=== PATIENT | female | born 1940 | race Caucasian/White ===

== ENCOUNTER 2020-10-10 16:54 | Inpatient (IN) | payer MEDICARE ==
[~2020-10-10 16:54] MED LIST: Iopamidol-370 76% 500 ML 1 ML ONE
--- NOTE | 2020-10-10 17:37 | RAD ---
Chest AP view INDICATION: Shortness of breath with wheezing COMPARISON: August 03, 2014 FINDINGS: Lungs: Chronic lung changes appears stable. There are new patchy areas of groundglass airspace opaci ty within the right lower lobe. Cardiac silhouette: Mild cardiomegaly and small hiatal hernia is stable. Vascular consultations of t he thoracic aorta are similar. Pulmonary vasculature: Normal Pleural spaces: No pleural effusion or pneumothorax is demonstrated. Upper abdomen: No abnormality seen. Osseous structures: No acute osseous abnormality. Additional findings: None. IMPRESSION: Patchy peripheral groundglass airspace opacities of the right lower lobe may be reflective of an atyp ical infectious process and early pneumonitis. Recommend correlation with the clinical examination. Covid pneumonia could have a similar appearance. Recommend consideration for Covid testing. Stable CO PD change and mild cardiomegaly.
[2020-10-10] MEDS ORDERED: PROVENTIL INHALER 6.7 G (200 INHALATIONS) ONE (17:57)
[2020-10-10] MEDS ORDERED: Magnesium 2 GM/50 ML BAG (IN WATER) ONE (17:57)
[2020-10-10] MEDS ORDERED: predniSONE 20 MG TAB ONE (17:57)
[2020-10-10] MEDS ORDERED: Nitroglycerin 2% Ointment 1 INCH/1 GM Packet ONE (17:57)
[2020-10-10 18:24] LABS: #Eosinphils 0.1 thou/uL (0.0-0.7); #Lymphocytes 0.4 thou/uL (1.20-3.40); #Monocytes 0.2 thou/uL (0.11-0.59); #Neutrophils 3.3 thou/uL (1.40-6.50); %Eosinophils 3.4 % (0.0-10.0); %Lymphocytes 8.9 % (21.0-51.0); %Neutrophils 82.7 % (42.0-75.0); Hemoglobin 10.7 g/dL (12.0-16.0); Mean Corpuscular Hemoglobin 31.4 pg (27.0-31.0); Mean Corpuscular Volume 98.3 fL (78.0-98.0); Mean Platelet Volume 8.3 fL (7.4-10.4); Platelet Count 137 thou/uL (130-400); RBC Distribution Width 12.9 % (11.5-14.5); Red Blood Cell (RBC) Count 3.41 mill/uL (4.20-5.40)
[2020-10-10 18:41] LABS: ALT (SGPT) 13 U/L (8-55); AST (SGOT) 21 U/L (5-34); Albumin 3.9 g/dL (3.4-4.8); Alkaline Phosphatase 44 U/L (40-110); Anion Gap 14 mmol/L (10-20); BUN (Urea Nitrogen) 21 mg/dL (9.8-20.1); Bilirubin, Total 0.6 mg/dL (0.2-1.2); Calc. Creatinine Clearance 0 mL/min (70-130); Carbon Dioxide 26 mmol/L (23-31); Chloride 103 mmol/L (98-107); Globulin 2.9 g/dL (2.4-3.5); Glucose 98 mg/dL (83-110); Magnesium 2.1 mg/dL (1.6-2.6); Potassium 4.1 mmol/L (3.5-5.1); Protein, Total 6.8 g/dL (5.8-8.1); Sodium 139 mmol/L (136-145)
[2020-10-10 19:04] LABS: CKMB 3.3 ng/mL (0-6.6)
[2020-10-10] MEDS ORDERED: Albuterol 200 PUFF (6.7GM INHALER) ONE (19:26)
[2020-10-10] MEDS ORDERED: Acetaminophen 500 MG TAB ONE (19:26)
[2020-10-10 19:50] LABS: SARS-CoV-2 NAA Rapid Test Not Detected (NotDetected)
[2020-10-10] MEDS ORDERED: Sodium Chloride 0.9% 100 ML ONE (20:20)
[2020-10-10] MEDS ORDERED: Azithromycin 250 MG TAB ONE (20:20)
[2020-10-10] MEDS ORDERED: cefTRIAXone\\ROCEPHIN 2 GM VIAL ONE (20:20)
[2020-10-10] MEDS ORDERED: Furosemide 20 MG/2 ML VIAL ONE (20:20)
--- NOTE | 2020-10-10 21:48 | CT ---
CTA Angio Chest W WO Con 10/10/2020 9:07 PM Indication: 79-year-old female with dyspnea and elevated d-dimer Technique: Multiple CTA images were obtained of the thorax with IV contrast. 3-D rendering: MIP shaw nstructed images were created and reviewed. Comparison: CT the thorax with contrast dated August 05, 2014 Findings: Pulmonary arteries: No central or segmental pulmonary embolus is evident. Heart and Aorta: There is severe coronary artery and thoracic aortic caliber patient. There is ectas ia of the ascending aorta measuring 3.9 cm. There is aneurysmal dilatation of the aortic arch to 3.8 cm. There is aneurysmal dilatation of the descending thoracic aorta 3.2 cm. There is a bilobed palacio prarenal abdominal aortic aneurysm measuring 3.9 and 3.2 cm. There are severe vascular calcifications of the visualized aorta. Mediastinum:There is an enlarged AP window lymph node measuring 1.5 cm. Lungs:There is a spiculated mass in the left upper lobe with surrounding cicatricial scarring measuri ng 5.1 x 3.7 x 4.2 cm. The spiculated margins of the mass contacts the aortic arch and left anterolateral pleural surface. Small focus of cavitation is seen within the lower aspect the mass. Th ere is severe emphysema. There are reticular nodular opacities within the posterior lateral right lower lobe on image 73 of series 3. There is a 6 mm pulmonary nodule in the right lower lobe on image 73 of series 3. Pleural space: There is a small left pleural effusion. There are pleural parenchymal scarring presen t within both upper hemithoraces. Upper Abdomen: This is not well interrogated due to the phase of contrast enhancement. Bilateral prince al cysts are poorly characterized on the current study. The visualized adrenal glands appear within normal limits. Osseous Structures: There are chronic wedge compression abnormalities involving T6-L1. There is wors ening moderate to severe loss of height involving the T6 vertebral body. There is also further loss of height involving the T11 compression abnormality. There is diffuse osteopenia. Soft tissues:No abnormality. Other findings:None. Impression: 1. No central or segmental pulmonary embolus. 2. Spiculated left upper lobe lung mass highly suspicious for lung malignancy. There is reticular nod ularity in the right lower lobe in addition to an additional 6 mm noncalcified pulmonary nodule. Metastatic disease is not excluded. Recommend further evaluation with PET/CT for additional character ization. 3. Enlarged AP window lymph node may reflect malignant lymphadenopathy. PET/CT would be helpful for f urther characterization. 4. Small left pleural effusion 5. Emphysema. 6. Chronic wedge compression abnormalities of T6-L1. Worsening loss of height involving the T6 and T1 1 compression abnormalities. 7. 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 Severe vascular calcifications.
--- NOTE | 2020-10-10 23:43 | HP ---
REASON FOR ADMISSION: Shortness of breath. HISTORY OF PRESENT ILLNESS: This is a 79-year-old female patient, who has been short of breath for the past three days. Shortness of breath is worse with activity. She denies any chest pain. Denies productive cough. Denies fevers. Denies chills. No recent travel and no sick contacts. She has been using her inhalers without any improvement. That is why, she came to the emergency room. Currently after receiving steroids and nebulizer treatments, she feels much better. PAST MEDICAL HISTORY: 1. High blood pressure. 2. COPD. 3. History of stroke with right lower extremity weakness as a sequela. ALLERGIES: TO PENICILLIN. FAMILY HISTORY: No known to have any premature coronary artery disease. REVIEW OF SYSTEMS: All systems reviewed, except the above-mentioned shortness of breath found to be negative. PHYSICAL EXAMINATION: GENERAL: Awake, alert, oriented, does not appear in distress. VITAL SIGNS: Her blood pressure is 138/71, pulse of 92, temperature is 98.3, saturating 99% on 2 L nasal cannula. HEENT: Head is nontraumatic, normocephalic. Pupils equal, reactive. Extraocular movements are intact. Nonicteric sclerae. Well-injected conjunctivae. Oral mucosa normal. Nasal mucosa normal. NECK: Supple. No adenopathy. No murmur. Thyroid is not palpable. Trachea is midline. No supraclavicular adenopathy. HEART: S1, S2, regular. No murmur. No gallops. No friction rubs. No displacement of PMI. LUNGS: Clear to auscultation. Decreased air entry bilaterally. ABDOMEN: Bowel sounds are positive. Nontender abdomen. EXTREMITIES: She has 1+ pitting edema to bilateral lower extremities with evidence of chronic venous stasis. NEURO: Cranial nerves II through XII within normal limits. Normal motor function. Normal sensory function, reflexes. LABORATORY DATA: Blood work shows a WBC of 4, hemoglobin of 10.7, platelets of 137, sodium of 139, potassium 4.1, bicarb of 26, creatinine of 0.86. Troponin 0.05. First troponin 0.061. COVID-[address] of the chest shows no PE. Spiculated left upper lobe lung mass, highly suspicious for lung malignancy. There is reticular nodularity in the right lower lobe in addition to an additional 6 mm noncalcified pulmonary nodule. Metastatic disease is not excluded. Recommended further evaluation with PET/CT for additional characterization. Enlarged AP window lymph node, may reflect malignant lymphadenopathy. PET/CT would be helpful for further characterization. Small left pleural effusion. Emphysema. Chronic wedge compression abnormality of T6, L1, worsening loss of height involving T6, T11 compression abnormalities. 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 Severe vascular calcification. ASSESSMENT AND PLAN: This is a 79-year-old female patient, who is presenting with shortness of breath, most likely secondary to chronic obstructive pulmonary disease exacerbation. She does have indeterminate troponin. She does have bilateral lower extremity edema. 1. Pulmonary: The patient will be on neb treatments, IV Solu-Medrol, and IV antibiotics. We will have Oncology to consult on her to further investigate the findings on the CAT scan of the chest. 2. For DVT prophylaxis, she will be on Lovenox. 3. Cardiac: The patient has high blood pressure, verify her home medications, she will be on high IV hydralazine as needed basis. 4. For her abnormal troponin, most likely is demand ischemia, we will continue rechecking her troponin since she will be on telemetry. I will do an echocardiogram. 5. In regard of the thoracic aorta and abdominal aortic dilatation, this needs to be followed up as an outpatient. 6. In regard of her code, I did discuss with her code status, and she was adamant that she wants to be a do not resuscitate, do not intubate. Job ID: [id number]
[2020-10-11 00:27] LABS: Troponin I 0.049 ng/mL (< 0.028)
[2020-10-11] MEDS ORDERED: Lorazepam 2 MG/ML VIAL ONE (04:19)
[2020-10-11] MEDS ORDERED: Lorazepam 2 MG/ML VIAL SLOW IVP SCH (04:20)
[2020-10-11] MEDS ORDERED: hydrALAZINE 20 MG/ML VIAL ONE (05:08)
[2020-10-11] MEDS: hydrALAZINE 20 MG/ML VIAL SLOW IVP PRN (05:13)
[2020-10-11] MEDS ORDERED: Furosemide 40 MG/4 ML VIAL ONE (05:15)
[2020-10-11] MEDS ORDERED: Furosemide 40 MG/4 ML VIAL SLOW IVP SCH (05:15)
[2020-10-11 07:04] LABS: #Lymphocytes 0.2 thou/uL (1.20-3.40); #Monocytes 0.1 thou/uL (0.11-0.59); #Neutrophils 4.8 thou/uL (1.40-6.50); %Basophils 0.1 % (0.0-1.0); %Lymphocytes 4.7 % (21.0-51.0); %Monocytes 2.4 % (0.0-10.0); %Neutrophils 92.8 % (42.0-75.0); Hemoglobin 12.4 g/dL (12.0-16.0); Mean Corpuscular HGB CONC 33.3 g/dL (32.0-36.0); Mean Corpuscular Hemoglobin 32.3 pg (27.0-31.0); Mean Platelet Volume 8.2 fL (7.4-10.4); Platelet Count 151 thou/uL (130-400); RBC Distribution Width 13.1 % (11.5-14.5); Red Blood Cell (RBC) Count 3.84 mill/uL (4.20-5.40); White Blood Cell (WBC) Count 5.1 thou/uL (4.8-10.8)
[2020-10-11 07:34] LABS: Anion Gap 17 mmol/L (10-20); BUN (Urea Nitrogen) 27 mg/dL (9.8-20.1); Calc. Creatinine Clearance 0 mL/min (70-130); Calcium 8.8 mg/dL (7.8-10.44); Carbon Dioxide 21 mmol/L (23-31); Chloride 101 mmol/L (98-107); Glucose 222 mg/dL (83-110); Potassium 4.6 mmol/L (3.5-5.1); Sodium 134 mmol/L (136-145)
--- NOTE | 2020-10-11 07:59 | RAD ---
CHEST 1 VIEW: Date: 10/11/2020 COMPARISON: 10/10/2020. HISTORY: Shortness of breath and wheezing. FINDINGS: There is atherosclerosis and cardiomegaly. Pulmonary vessels and hilum are normal. Costophrenic angle s are clear. There are patchy interstitial opacities throughout the lung parenchyma with a more focal opacity in the left upper lobe. There is a corresponding spiculated mass noted on the CT angiogram o f the chest performed on 10/10/2020. IMPRESSION: 1. Atherosclerosis. 2. Cardiomegaly without evidence of congestive heart failure. 3. Spiculated mass in the left upper lobe. POS: PPP
[2020-10-11] MEDS ORDERED: methylPREDNISolone Sod Succ 40 MG VIAL IVP SCH (09:00)
[2020-10-11] MEDS ORDERED: methylPREDNISolone Sod Succ 40 MG VIAL ONE (09:37)
[2020-10-11] MEDS ORDERED: Enoxaparin Sodium 40 MG/0.4 ML SYRINGE ONE (09:37)
[2020-10-11] MEDS: Enoxaparin Sodium 40 MG/0.4 ML SYRINGE SC SCH (09:46)
--- NOTE | 2020-10-11 13:22 | PDOC.BPN ---
- Brief Progress Note [id number] Progress note dictated
--- NOTE | 2020-10-11 14:00 | PRG ---
DATE OF SERVICE: 10/11/2020 SUBJECTIVE: The patient was admitted last night with shortness of breath for the last 3 days. She does have history of COPD, hypertension, and CVA. Workup, the patient was in respiratory failure, placed on oxygen and is off all bronchodilators, IV antibiotics, and IV Solu-Medrol. Also, the patient was found to have a spiculated lung mass, for which Oncology is being consulted. Also, she was found to have a cirrhotic and abdominal aortic dilatation that needs to be followed as an outpatient. Today, she is feeling a little better, although she seems to be short of breath. OBJECTIVE: VITAL SIGNS: Blood pressure is 170/90, pulse is 102, respiratory rate is 20, and oxygen saturation is 98% on 2 L/minute nasal cannula. HEAD AND NECK: Normocephalic, atraumatic. CHEST: Bilateral expiratory wheeze. HEART: S1 and S2. Regular. ABDOMEN: Soft, nontender. NEURO: Awake, alert. PSYCH: Unable to assess. EXTREMITIES: No clubbing. No cyanosis. LABORATORY DATA: Sodium is 134, potassium 4.6, BUN is 27, creatinine 1.1, and glucose is 222. COVID test negative. ASSESSMENT: 1. Acute respiratory failure, the patient was weaned off BiPAP, currently on nasal cannula. 2. Chronic obstructive pulmonary disease with exacerbation. 3. Hypertension. 4. Lung mass. 5. Aneurysmal dilatation of thoracic and abdominal aorta. PLAN: 1. Continue with oxygen to keep saturation more than 92%. 2. Continue with IV steroids. 3. Bronchodilators. 4. IV antibiotics. 5. Oncology being consulted for evaluation and further recommendations regarding spiculated left upper lobe lung mass, which is suspicious of malignancy. 6. DVT prophylaxis as appropriate. 7. Case discussed with the patient's daughter. Job ID: [id number]
[2020-10-11] MEDS: methylPREDNISolone Sod Succ 40 MG VIAL IVP SCH ×2 (17:17→23:18)
--- NOTE | 2020-10-11 17:52 | CON ---
DATE OF CONSULTATION: HISTORY OF PRESENT ILLNESS: Mehnaz Ji is a 79-year-old female, who was a lifelong smoker up to a pack a day for at least 50+ years. She says quit smoking 7 years ago. She has not seen a doctor for 2 years, now presents to the hospital with increasing shortness of breath for several days duration without any associated chest pain, chills, sweats, hemoptysis. She has been in the ER now for almost 24 hours. I spoke to the patient as well as a sister who says she uses a walker to get around, but can barely walk with a walker, maybe about 30 feet. Denies any weight loss. She has noticed lower extremity swelling. PAST MEDICAL HISTORY: Coronary artery disease, status post stent, COPD, previous TIA, and hypertension. PAST SURGICAL HISTORY: Stent in the leg. TOBACCO: As noted. ALCOHOL: Unknown. REVIEW OF SYSTEMS: Otherwise, unremarkable. HOME MEDICATIONS: Include some inhaler. ALLERGIES: PENICILLIN. REVIEW OF SYSTEMS: 10-point negative. PHYSICAL EXAMINATION: EXTREMITIES: She has trace edema. VITAL SIGNS: Temperature 97, respirations 18, sats are 90% on 2 L, blood pressure 170/100. She was on BiPAP for a period of time. GENERAL: She is awake, alert, responsive. CHEST: Decreased breath sounds minimal wheezing. CARDIAC: Normal S1, S2. No gallops. ABDOMEN: Soft. LABORATORY DATA: Creatinine 1.3, glucose 222, sodium 139. Troponin mildly elevated. Coronavirus test was negative. IMAGING STUDIES: X-ray shows a left upper lung mass, marked hyperinflation. CAT scan confirms the left upper lung mass measuring 5 x 3 x 4 cm along with aneurysmal dilatation of the aorta descending. IMPRESSION: Chronic obstructive pulmonary disease, left upper lung mass, bronchogenic carcinoma, hypertension, peripheral vascular disease. PLAN: Steroids, neb treatments, antibiotics will be initiated. When she is approved, we will discuss ongoing plan whether she wants a tissue diagnosis etc. Consultation note, 70 minutes, 50% direct patient care. Job ID: [id number]
[2020-10-11] MEDS: Mometasone 200 MCG/Formoterol 5 MCG 120 PUFF INHALER INH SCH (19:20)
[2020-10-11] MEDS ORDERED: cefTRIAXone\\ROCEPHIN 1 GM in Sodium Chloride 0.9% 100 ML IVPB SCH (20:00)
[2020-10-11] MEDS ORDERED: Azithromycin 200 MG/5 ML Oral Suspension PO SCH (20:00)
[2020-10-11] MEDS ORDERED: Acetaminophen 325 MG TAB PO SCH (22:00)
--- NOTE | 2020-10-11 22:13 | CON ---
DATE OF CONSULTATION: REASON FOR CONSULTATION: Lung mass. HISTORY OF PRESENT ILLNESS: Ms. Ji is a 79-year-old female who has a history of COPD and hypertension, who presented to the emergency room yesterday with worsening shortness of breath over the last three days. She actually admits that she has been progressively short of breath over the last 6 months. She was a patient of Dr. Rizo and has not seen a physician in over three years. She stopped taking her blood pressure medicine and substituted beet juice for this. She was brought to the emergency room by her family. Once here, she underwent a CT angio of the chest and thorax. It was negative for pulmonary emboli; however, there was a spiculated mass in the left upper lobe measuring 5.1 x 3.7 x 4.2 cm. The spiculated margins of the mass contact the aortic arch and left anterolateral pleural surface. There was a 6 mm pulmonary nodule in the right lower lobe and a small pleural effusion. There is a chronic wedge compression of T6 through L1 and aneurysmal dilation of the thoracic and abdominal aorta. The patient was admitted for COPD exacerbation. She was given Lasix with improvement in her breathing. We were asked to see her regarding her spiculated mass. PAST MEDICAL HISTORY: 1. Hypertension. 2. Degenerative joint disease. 3. History of TIA. 4. COPD. PAST SURGICAL HISTORY: None. ALLERGIES: TO PENICILLIN. HOME MEDICATIONS: None. FAMILY HISTORY: She has a brother with lung cancer. Another brother with throat cancer. A brother with bladder cancer and a son with rectal cancer. SOCIAL HISTORY: Lives alone. A 50-pack plus year history of smoking, quit 7 years ago. No alcohol or illicit drug use. REVIEW OF SYSTEMS: A 12-point review of systems is negative except for noted in HPI. PHYSICAL EXAMINATION: VITAL SIGNS: Temperature 98.3, pulse is 120, respiratory rate 28, blood pressure is 174/100. She is 96% on 2 L. GENERAL: This is a thin female, in mild respiratory distress. HEENT: Normocephalic, atraumatic. Pupils are equal and reactive to light. NECK: Supple. CV: Regular rate and rhythm. She is tachycardic. LUNGS: Diminished throughout. She has pursed lip breathing. ABDOMEN: Soft. Bowel sounds are positive. EXTREMITIES: She has 1+ bilateral lower extremity edema. SKIN: No rash. HEMATOLOGIC: She has scattered bruising on her arms. NEUROLOGIC: Nonfocal. PERTINENT LABORATORY DATA AND X-RAYS: WBCs 5.1, hemoglobin 12.4, hematocrit 37.2, platelet count is 151,000, 92% neutrophils, 5% lymphocytes. Sodium 134, potassium 4.6, chloride 101, CO2 is 21, BUN is 17, creatinine 1.13, calcium 8.8. Bilirubin 0.6, AST is 21, ALT is 13, alkaline phosphatase is 44. Serum total protein is 6.8, albumin 3.9, globulin 2.9. Troponin is 0.049. BNP is 355.5. Influenza and SARS negative. Radiology per HPI. ASSESSMENT: 1. Left upper lobe spiculated mass. 2. Chronic obstructive pulmonary disease exacerbation. DISCUSSION: The patient has been treated with diuretics and O2 and has improved. She remains tachycardic. She does not see a supervising editor news reel, but was diagnosed with COPD by Dr. Rizo. In review of her medical records, she had a CAT scan performed in 2013, which showed a 1 cm nodular density in the left upper lobe on CT angio. There has been no further workup for this, but obviously has grown over the last several years. This is unlikely a small cell lung cancer. However, she does need a biopsy. Given her dyspnea, I have asked Pulmonology to see her and further recommendations regarding biopsy. She does wish to pursue treatment should this be a lung cancer. We will follow along with the hospital course. Thank you for the consult. Job ID: [id number] MTDD
[2020-10-12] MEDS ORDERED: Nitroglycerin 2% Ointment 1 INCH/1 GM Packet ONE ×2 (00:55→00:57)
--- NOTE | 2020-10-12 01:24 | PDOC.EVN ---
Event Note - Event Note Event Note: Nursiing called. Patient awoke, BP184/120, HR 130s, RR 28, spo2 91% 2L NC. Patient endorses feeling hot and SOB. Removed her gown. Denies chest pain or heart palps. A: sitting tripod side of bed, severe kyphosis. A&Ox4 mild resp distress, speaks in complete sentences Tachycardic, no rubs or gallops,no diaphoresis Diminished throughout, poor inspiratory effort. Tele monitor appears ST. Does not appear to be FVO. Patient on solumedrol, just receive Neb per nursing Has cancer, CTA at admission no PE, patient on LMWH prophylaxis Ordered nitropaste, asked nursing to get fan in room. Patient unable to lay flat, will not tolerate CTA. STAT CXR. Will monitor response. Discusse with Dr. Bailey.
[2020-10-12] MEDS: cloNIDine 0.1 MG TAB PO PRN ×2 (01:36→08:51)
[2020-10-12] MEDS ORDERED: Lorazepam 2 MG/ML VIAL SLOW IVP SCH (03:00)
[2020-10-12 05:04] LABS: Anion Gap 14 mmol/L (10-20); BUN (Urea Nitrogen) 28 mg/dL (9.8-20.1); Calc. Creatinine Clearance 34 mL/min (70-130); Calcium 8.4 mg/dL (7.8-10.44); Carbon Dioxide 29 mmol/L (23-31); Chloride 99 mmol/L (98-107); Glucose 162 mg/dL (83-110); Potassium 3.5 mmol/L (3.5-5.1); Sodium 138 mmol/L (136-145)
[2020-10-12] MEDS: Nitroglycerin 2% Ointment 1 INCH/1 GM Packet TOP SCH ×3 (05:57→21:05)
[2020-10-12] MEDS: methylPREDNISolone Sod Succ 40 MG VIAL IVP SCH ×3 (06:28→21:06)
[2020-10-12] MEDS: Mometasone 200 MCG/Formoterol 5 MCG 120 PUFF INHALER INH SCH ×2 (07:15→19:05)
--- NOTE | 2020-10-12 07:50 | RAD ---
Portable frontal chest radiograph: 10/12/2020 COMPARISON: 10/11/2020 HISTORY: Respiratory distress FINDINGS: Ill-defined mass noted in the superomedial left upper lobe, better assessed on recent CT an giogram, concerning for malignancy. There is stable atherosclerotic calcification of a prominent and tortuous thoracic aorta. There is nonspecific diffuse increased linear interstitial density, benja lar when compared to prior imaging, with a basilar predominance. No pneumothorax, lobar consolidation, or alveolar edema. IMPRESSION: Stable appearance of the chest as described above.
--- NOTE | 2020-10-12 08:28 | PRG ---
DATE OF SERVICE: 10/12/2020 SUBJECTIVE: This morning, she is awake, alert, and responsive. She has some kind of a problem last night. X-ray was repeated again, but it shows no changes except for the left upper lung mass. OBJECTIVE: VITAL SIGNS: Temperature 97, pulse 84, sats are 98% on 2 L, and blood pressure 166/70. CHEST: Decreased breath sounds. No wheezing. CARDIAC: Normal S1 and S2. ABDOMEN: No masses. ASSESSMENT: Chronic obstructive pulmonary disease, respiratory failure, lung mass. PLAN: Best option at this time is to switch over to oral medication and continue supportive care PT. Consider workup of the left upper lung mass when she is more stable. We will follow. Job ID: [id number]
[2020-10-12] MEDS: Enoxaparin Sodium 40 MG/0.4 ML SYRINGE SC SCH (08:39)
--- NOTE | 2020-10-12 12:43 | PDOC.BPN ---
- Brief Progress Note [id number] Progress note
--- NOTE | 2020-10-12 13:27 | PRG ---
DATE OF SERVICE: 10/12/2020 SUBJECTIVE: The patient is feeling better this morning. She says that she had a rough night last night where she was not feeling good and short of breath. This morning, she looks more calm and breathing easier. OBJECTIVE: VITAL SIGNS: Blood pressure is 134/70, pulse is temperature is 98.6, oxygen saturation is nasal cannula. HEAD AND NECK: Normocephalic, atraumatic. Neck is supple. CHEST: Fair bilateral air entry. HEART: S1, S2. Regular. ABDOMEN: Soft, nontender. Bowel sounds present. NEURO: Awake, alert. Moving extremities. PSYCH: Unable to assess. ASSESSMENT AND PLAN: 1. Acute respiratory failure. Initially, the patient was on BiPAP, weaned to nasal cannula. 2. Chronic obstructive pulmonary disease with exacerbation. 3. Hypertension. 4. Lung mass. 5. Aneurysmal dilatation of thoracic and abdominal aorta. PLAN: 1. Continue with bronchodilators. 2. Steroids. 3. IV antibiotics. 4. Appreciate Pulmonary and Oncology input. 5. DVT prophylaxis. 6. Continue with current management. Job ID: [id number]
[2020-10-12] MEDS ORDERED: Lorazepam 2 MG/ML VIAL ONE (13:33)
[2020-10-12] MEDS ORDERED: FLU VACC QS2020-21(65YR UP)/PF 240 MCG/0.7 ML SYRINGE IM ONE (17:15)
[2020-10-12] MEDS: Lorazepam 2 MG/ML VIAL SLOW IVP PRN (21:06)
[2020-10-13] MEDS: methylPREDNISolone Sod Succ 40 MG VIAL IVP SCH ×4 (00:38→23:36)
[2020-10-13] MEDS: hydrALAZINE 20 MG/ML VIAL SLOW IVP PRN (04:43)
[2020-10-13] MEDS: Lorazepam 2 MG/ML VIAL SLOW IVP PRN ×2 (05:13→12:45)
[2020-10-13] MEDS: Nitroglycerin 2% Ointment 1 INCH/1 GM Packet TOP SCH ×3 (05:54→23:37)
--- NOTE | 2020-10-13 08:43 | PRG ---
DATE OF SERVICE: 10/13/2020 SUBJECTIVE: Mehnaz Ji is better this morning. She is less short of breath, less cough. OBJECTIVE: VITAL SIGNS: Temperature 98, pulse 92, sats are 92% on 2 L, blood pressure 137/67. CHEST: Decreased breath sounds. No wheezing. CARDIAC: Normal S1, S2. No gallops. ABDOMEN: No masses. ASSESSMENT: 1. Chronic obstructive pulmonary disease. 2. Anxiety. 3. Tobacco abuse. 4. Left lung mass. 5. Normal ejection fraction, but there was a mass in the right atrium. Recommended AIDA. PLAN: Continue present treatment, O2, steroids, supportive care. We could, under general anesthesia, do a bronchoscopy with transbronchial biopsies on Saturday. I am going to discuss with Oncology whether it is worth pursuing a tissue diagnosis. Job ID: [id number]
[2020-10-13] MEDS: Enoxaparin Sodium 40 MG/0.4 ML SYRINGE SC SCH (09:07)
--- NOTE | 2020-10-13 12:10 | PDOC.BPN ---
- Brief Progress Note [id number] Progress
--- NOTE | 2020-10-13 12:40 | PRG ---
DATE OF SERVICE: 10/13/2020 SUBJECTIVE: The patient is sitting up in bed, still short of breath, but overall she is saying that she is feeling better. OBJECTIVE: GENERAL: The patient is in mild respiratory distress. VITAL SIGNS: Blood pressure 130/60, heart rate is 92, respiratory rate is 22, oxygen saturation 92% on 2 L/minute nasal cannula. HEAD AND NECK: Normocephalic, atraumatic. NECK: Supple. CHEST: Diminished air entry bilaterally. HEART: S1, S2. Tachycardic. ABDOMEN: Soft, nontender. NEURO: Awake, alert, anxious. PSYCH: Unable to assess. EXTREMITIES: No clubbing, no cyanosis. LABORATORY DATA: 2D echo showed normal ejection fraction, but did show a right atrial mass. ASSESSMENT: 1. Chronic obstructive pulmonary disease with acute exacerbation. 2. Acute on chronic respiratory failure. 3. Lung mass, ruled out malignancy. 4. Right atrial mass? 5. Anxiety. 6. Hypertension. 7. 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 PLAN: 1. Continue with oxygen to keep saturation more than 92%. 2. Bronchodilators. 3. IV steroids. 4. Antibiotics. 5. We will consult Cardiology regarding right atrial mass? Recommend AIDA?? 6. Appreciate Pulmonary input. May need the lung biopsy? 7. The patient is DNR. 8. Continue with DVT prophylaxis. Job ID: [id number]
[2020-10-13] MEDS: Mometasone 200 MCG/Formoterol 5 MCG 120 PUFF INHALER INH SCH ×2 (12:52→19:05)
--- NOTE | 2020-10-13 22:03 | CON ---
DATE OF CONSULTATION: 10/13/2020 INDICATION FOR CONSULTATION: A 79-year-old female who underwent echocardiogram yesterday. It was found to have what appeared to be a right atrial mass of uncertain etiology. She had already undergone a CT angiogram also. HISTORY OF PRESENT ILLNESS: This 79-year-old female who has a history of COPD, had a history of smoking abuse in the past and still does some occasional vaping. She has had a CVA in the past. She has history of hypertension, peripheral vascular disease. She noticed in the last several days she has become more short of breath. She presented to the emergency room and was admitted for further evaluation and treatment. A CT angiogram of the chest showed evidence of some abnormalities, which is suspicious for malignancies. She will undergo apparently a biopsy perhaps on Saturday. She also underwent echocardiogram, which showed a suspicious right atrial mass which may be due to remnants of an eustachian valve or maybe the posterior aspect of the right atrium, but is very suspicious for possible mass around the area of the inferior vena cava. This certainly given her history of lung problems with possible malignancy. This certainly could be a malignancy. I discussed this with the radiologist and they did not feel that a repeat CT angiogram of the heart will make any difference as far as evaluation. It is also somewhat difficult to evaluate by transesophageal echocardiogram to see this area to determine whether or not this is a mass or not. The best method would be to perform an MRI. However, this is not performed at this facility and that would help certainly delineate whether or not this is an atrial mass or not exactly what this may be. At this time, she denies any cardiac history otherwise. She has no chest pain. She has shortness of breath due to her COPD. PAST MEDICAL HISTORY: Significant for the CVA, COPD, hypertension, history of peripheral vascular disease. She has had a CVA. She also had history of syncopal episode many years ago. ALLERGIES: SHE IS ALLERGIC TO PENICILLIN. MEDICATIONS: At this time, her medications include methylprednisolone, nitroglycerin half an inch q.8 hours. She has on been placed on Lovenox subcu 40 mg, ipratropium albuterol nebulizer treatment. She is on Levaquin. She is also on inhalers, mometasone, and ipratropium/albuterol, Tylenol as needed, clonidine p.r.n., FAMILY HISTORY: Unremarkable for any early heart disease. SOCIAL HISTORY: She lives at home. She has no significant alcohol use. She only uses occasional vaping. She does not smoke any longer. REVIEW OF SYSTEMS: HEENT: She denied any new HEENT complaints. PULMONARY: She complains of shortness of breath. CARDIAC: She had no palpitations or chest pain. GI: No nausea, vomiting, or diarrhea. : No dysuria, polyuria, or hematuria. MUSCULOSKELETAL: She walks with a walker and has some claudication symptoms involving the right lower extremity at times. Otherwise, she also complains of some edema, but no history of seizures or syncope except for many years ago, history of syncope back in 2013 I believe. PHYSICAL EXAMINATION: GENERAL: Reveals an elderly ill-appearing female, who is somewhat short of breath during the evaluation. HEENT: Shows head to be normocephalic and atraumatic. Carotid pulses are present without any bruits. CHEST: Has decreased breath sounds throughout. CARDIOVASCULAR: Regular rate and rhythm. Heart sounds are somewhat distant, but I do not hear any gross murmurs, heaves, thrills, bruits, or rubs. ABDOMEN: Soft and nontender. Positive bowel sounds are present. EXTREMITIES: Show no clubbing or cyanosis. She did have a minimal edema of the right lower extremity. Pedal pulses are not present. Popliteal pulses are not palpable nor could I palpate a right femoral pulses nor could I hear bruit on that side. I did hear a very soft bruit on the left side with very decreased pulses on the left side also. NEUROLOGIC: She has evidence of previous CVA. She is not get out of the bed for further evaluation. LABORATORY DATA: Shows sodium 138, potassium 3.5, chloride was 99, her BUN was 28 with a creatinine of 1.05, blood sugar was 162. Her troponin I originally was 0.06, is decreased down to 0.049. Her BNP was 355. Her WBC was 5.1, hemoglobin 12.4, hematocrit 37.2, platelet count 151,000. Her EKG on admission shows evidence of left ventricular hypertrophy. She has decreased R-wave progression in V1 through V3 and some nonspecific ST-segment changes associated with left ventricular hypertrophy. Her echocardiogram showed an ejection fraction of 50% to 55% with right atrial mass, which is indeterminate as to what this actually was. She did have some moderate mitral valve regurgitation. Her chest x-ray showed this ill-defined mass noted in the superior medial left upper lobe with some calcifications noted and then please refer to the report on the CT scan of the chest. IMPRESSION: 1. From a cardiac standpoint, it is a possible right atrial mass. After discussion with the radiologist, the best way to determine this would be maybe by an MRI. It is difficult to assess by transesophageal echocardiogram as well as by repeat CT angiogram. I did not feel the repeat CT angiogram of the heart would make any difference somewhat was already seen with a CT angiogram of the chest. Should she be found to have malignancy on the biopsy from the chest area, then this certainly could be a malignancy on the heart, but true definitive diagnosis would be by biopsy. If this is deemed to be some type of a mass rather than remnants of eustachian valve. 2. Chronic obstructive pulmonary disease, which is being dealt with by the primary care service. 3. Possible lung malignancies and masses, which will also be dealt with by the primary care service and Pulmonology, which has already seen the patient I believe. The radiologist will proceed with biopsy perhaps. 4. Peripheral vascular disease. She has diffuse peripheral vascular disease. I cannot feel pedal pulses. There are popliteal pulses and I cannot palpate a right femoral pulse. She is not really symptomatic from this at this time. We will continue to monitor this, given her overall symptoms and present illness with her possible lung cancer and possible mass in the right atrium. 5. History of cerebrovascular accident in the past. She is able to actually continue her daily activities at home with a walker. This appears to be overall stable. We will be more than happy to continue to follow the patient with you and further recommendations will depend on the results of the biopsy from pulmonary standpoint and then she wishes to pursue further evaluation, then MRI would be the next step to evaluate the mass in the right atrium. The patient does have a DNR status. Job ID: [id number] [facility]
[2020-10-14] MEDS: Lorazepam 2 MG/ML VIAL SLOW IVP PRN ×2 (01:38→09:23)
[2020-10-14] MEDS: Nitroglycerin 2% Ointment 1 INCH/1 GM Packet TOP SCH ×3 (05:08→22:29)
[2020-10-14] MEDS: Mometasone 200 MCG/Formoterol 5 MCG 120 PUFF INHALER INH SCH ×2 (07:45→19:15)
--- NOTE | 2020-10-14 09:02 | PRG ---
DATE OF SERVICE: OBJECTIVE: VITAL SIGNS: Temperature 98, pulse 103, respiratory rate 18, sats 97 on 2 L, blood pressure 162/70. She is still short of breath at rest. CHEST: Decreased breath sounds. No wheezing. CARDIAC: Normal S1, S2. ABDOMEN: No mass. ASSESSMENT: Severe chronic obstructive pulmonary disease, left upper lung mass. PLAN: 1. Continue steroids, antibiotics, neb treatments. 2. She is still unstable to do any procedure. Make a decision early next week regarding a tissue diagnosis, which the patient apparently wants one. 3. We are awaiting input from Palliative Care. Job ID: [id number]
[2020-10-14] MEDS: Enoxaparin Sodium 40 MG/0.4 ML SYRINGE SC SCH (09:16)
[2020-10-14] MEDS: methylPREDNISolone Sod Succ 40 MG VIAL IVP SCH ×2 (09:17→20:38)
--- NOTE | 2020-10-14 10:56 | PDOC.HOSPP ---
- Subjective Encounter Date: 10/14/20 Subjective: Found the patient sitting up in her bed with an emesis bag containing some emesis in her hand. Patient reports that when she eats the food feels like it is going down but then does not. Then she regurgitates or vomits the food and a lot of slimy liquid. She describes it is phlegm that it is clearly not from a respiratory source. Says this is been going on for very long while. Says it happens with all sorts of foods but ultimately does agree that it is worse with breads and meats. - Objective Vital Signs & Weight: Vital Signs (12 hours) Temp Pulse Resp BP BP Pulse Ox 10/14/20 08:00 96 10/14/20 07:54 98.1 F 103 H 18 162/72 H 96 10/14/20 07:43 102 H 22 H 97 10/14/20 03:42 98 F 100 20 154/70 H 98 10/14/20 01:42 97 Weight Admit Weight 108 lb 14.4 oz Weight 108 lb 14.4 oz I&O: 10/13/20 10/14/20 10/15/20 06:59 06:59 06:59 Intake Total 307 982 5734 Output Total 749 077 1997 Balance 850 130 -526 Result Diagrams: 10/11/20 06:34 10/12/20 04:17 Hospitalist ROS - Medication Medications: Active Medications Generic Name Dose Route Start Last Admin Trade Name Freq PRN Reason Stop Dose Admin Albuterol/Ipratropium 3 ml 10/11/20 01:00 10/14/20 07:43 Ipratropium/Albuterol Sulfate 3 Ml Neb NEB 3 ml [id number] JOSE Administration Albuterol/Ipratropium 3 ml 10/10/20 22:51 10/13/20 05:22 Ipratropium/Albuterol Sulfate 3 Ml Neb IPPB 3 ml [id number] PRN Administration SOB &/or Wheezing Clonidine 0.1 mg 10/11/20 23:09 10/12/20 08:51 Clonidine 0.1 Mg Tab PO 0.1 mg Q4H PRN Administration SBP Greater Than 180 Enoxaparin Sodium 40 mg 10/11/20 09:00 10/14/20 09:16 Enoxaparin Sodium 40 Mg/0.4 Ml Syringe SC 40 mg 0900 JOSE Administration Hydralazine HCl 5 mg 10/10/20 22:55 10/13/20 04:43 Hydralazine 20 Mg/Ml Vial SLOW IVP 5 mg Q4H PRN Administration Hypertension Levofloxacin 500 mg 10/13/20 06:00 10/14/20 05:08 Levofloxacin 500 Mg Tab PO 10/18/20 06:01 500 mg 0600 JOSE Administration Lorazepam 0.25 mg 10/12/20 13:59 10/14/20 09:23 Lorazepam 2 Mg/Ml Vial SLOW IVP 0.25 mg Q6H PRN Administration Anxiety Methylprednisolone Sodium Succinate 40 mg 10/13/20 09:00 10/14/20 09:17 Methylprednisolone Sod Succ 40 Mg Vial IVP 40 mg BID JOSE Administration Mometasone Furoate/Formoterol Fumar 2 puff 10/11/20 18:30 10/14/20 07:45 Mometasone 200 Mcg/Formoterol 5 Mcg 120 Puff Inhaler INH 2 puff BID-RT JOSE Administration Nitroglycerin 0.5 inch 10/12/20 06:00 10/14/20 05:08 Nitroglycerin 2% Ointment 1 Inch/1 Gm Packet TOP 0.5 inch Q8HR JOSE Administration Sodium Chloride 10 ml 10/11/20 09:00 10/14/20 09:17 Flush - Normal Saline 10 Ml Syringe IVF 10 ml Q12HR JOSE Administration Sodium Chloride 10 ml 10/10/20 23:15 10/12/20 13:37 Flush - Normal Saline 10 Ml Syringe IVF 10 ml PRN PRN Administration Saline Flush Hospitalist Exam Vitals: Vital Signs (12 hours) Temp Pulse Resp BP BP Pulse Ox 10/14/20 08:00 96 10/14/20 07:54 98.1 F 103 H 18 162/72 H 96 10/14/20 07:43 102 H 22 H 97 10/14/20 03:42 98 F 100 20 154/70 H 98 10/14/20 01:42 97 Weight Admit Weight 108 lb 14.4 oz Weight 108 lb 14.4 oz General Appearance: NAD, awake alert, ill appearing Neck: supple, symmetric Heart: RRR, no murmur, no gallops, no rubs, normal peripheral pulses Respiratory: no wheezes, no ronchi, rales Respiratory - other findings: Diminished Gastrointestinal: soft, non-tender, non-distended, normal bowel sounds, no palpable masses, no hepatomegaly, no splenomegaly, no bruit Extremities: no cyanosis, no clubbing, no edema Skin: normal turgor Neurological: no focal deficits Musculoskeletal: normal tone, normal strength Psychiatric: normal affect, normal behavior, A&O x 3 Hosp A/P (1) COPD exacerbation Code(s): J44.1 - CHRONIC OBSTRUCTIVE PULMONARY DISEASE W (ACUTE) EXACERBATION Status: Acute (2) Lung mass Code(s): R91.8 - OTHER NONSPECIFIC ABNORMAL FINDING OF LUNG FIELD Status: Acute (3) Atrial mass Code(s): I51.89 - OTHER ILL-DEFINED HEART DISEASES Status: Acute (4) Esophageal dysphagia Code(s): R13.10 - DYSPHAGIA, UNSPECIFIED Status: Acute (5) Thoracic aortic aneurysm (TAA) Code(s): I71.2 - THORACIC AORTIC ANEURYSM, WITHOUT RUPTURE Status: Acute (6) AAA (abdominal aortic aneurysm) Code(s): I71.4 - ABDOMINAL AORTIC ANEURYSM, WITHOUT RUPTURE Status: Acute (7) Hypertension Code(s): I10 - ESSENTIAL (PRIMARY) HYPERTENSION Status: Acute (8) Anxiety Code(s): F41.9 - ANXIETY DISORDER, UNSPECIFIED Status: Acute - Plan COPD exacerbation: Pulmonary following. Continue bronchodilators, steroids, antibiotics Acute on chronic hypoxic respiratory failure: Continue 2 L nasal cannula as needed. Lung mass: Patient will need a biopsy. Looks like she is willing to undergo treatment although she says she would not be able to get back and forth for radiation therapy if that was indicated. Patient will need to be more medically stable in order to entertain possible biopsy options. Atrial mass: Noted on echocardiogram. Cardiology following. Biopsy would be indicated once the patient is stable and she is willing to pursue treatment. Esophageal dysphagia: Consult GI. Patient is had this for a while but has not had prior evaluation nor endoscopy. EDUARDO: Patient's prior GFR was typically in the normal range back in 2015. Currently her GFR is ranged from 46-64. This may represent chronic change that has occurred since 2014 or acute kidney injury. GFR appears to be roughly stable during this admission. Indeterminate troponins: Likely represents NSTEMI type II secondary to hypoxic respiratory failure. No further work-up indicated at this time. Hyperglycemia: Patient has had subtle hyperglycemia intermittently. Continue to monitor. Hypertension: Blood pressure has generally been running high throughout this admission. Does not appear that the patient has been on antihypertensives previously to this admission. We will add amlodipine for now. Anxiety: Patient has lorazepam as needed. Thoracic and abdominal aortic aneurysmal dilatations: Do not appear to be large enough to consider surgical intervention. Defer to cardiology.
[2020-10-14] MEDS: cloNIDine 0.1 MG TAB PO PRN (11:59)
--- NOTE | 2020-10-14 15:10 | PDOC.CPN ---
- Subjective Date: 10/14/20 Time: 15:07 Interval history: Patient lying in bed, she just received a nebulizer treatment from the respiratory therapist. Her son is at bedside, patient states she has been short of breath but does feel better since her recent breathing treatment. The patient was also spitting up brown colored substance, she states that she has been doing this for over 6 months, GI consult ordered for this. Her son is at bedside - Review of Systems General: denies: fever/chills, weight/appetite/sleep changes, night sweats, fatigue Respiratory: reports: shortness of breath. denies: cough, congestion, exercise intolerance Cardiovascular: denies: chest pain, palpitation, edema, paroxysmal nocturnal dyspnea, orthopnea Gastrointestinal: reports: vomiting, abd pain Musculoskeletal: denies: pain, tenderness, stiffness, swelling, arthritis /arthralgias Neurological: denies: numbness, syncope, seizure, weakness - Objective Allergies/Adverse Reactions: Allergies Allergy/AdvReac Type Severity Reaction Status Date / Time Penicillins Allergy Rash Verified 10/11/20 02:22 Visit Medications: Current Medications Acetaminophen (Acetaminophen 325 Mg Tab) 650 mg PO Q4H PRN PRN Reason: Headache/Fever/Mild Pain (1-3) Albuterol/Ipratropium (Ipratropium/Albuterol Sulfate 3 Ml Neb) 3 ml NEB [id number] JOSE Last Admin: 10/14/20 14:40 Dose: 3 ml Documented by: Albuterol/Ipratropium (Ipratropium/Albuterol Sulfate 3 Ml Neb) 3 ml IPPB Q2HR- RT PRN PRN Reason: SOB &/or Wheezing Last Admin: 10/13/20 05:22 Dose: 3 ml Documented by: Clonidine (Clonidine 0.1 Mg Tab) 0.1 mg PO Q4H PRN PRN Reason: SBP Greater Than 180 Last Admin: 10/14/20 11:59 Dose: 0.1 mg Documented by: Enoxaparin Sodium (Enoxaparin Sodium 40 Mg/0.4 Ml Syringe) 40 mg SC 0900 JOSE Last Admin: 10/14/20 09:16 Dose: 40 mg Documented by: Hydralazine HCl (Hydralazine 20 Mg/Ml Vial) 5 mg SLOW IVP Q4H PRN PRN Reason: Hypertension Last Admin: 10/13/20 04:43 Dose: 5 mg Documented by: Levofloxacin (Levofloxacin 500 Mg Tab) 500 mg PO 0600 [facility] Stop: 10/18/20 06:01 Last Admin: 10/14/20 05:08 Dose: 500 mg Documented by: Lorazepam (Lorazepam 2 Mg/Ml Vial) 0.25 mg SLOW IVP Q6H PRN PRN Reason: Anxiety Last Admin: 10/14/20 09:23 Dose: 0.25 mg Documented by: Methylprednisolone Sodium Succinate (Methylprednisolone Sod Succ 40 Mg Vial) 40 mg IVP BID [facility] Last Admin: 10/14/20 09:17 Dose: 40 mg Documented by: Mometasone Furoate/Formoterol Fumar (Mometasone 200 Mcg/Formoterol 5 Mcg 120 Puff Inhaler) 2 puff INH BID-RT [facility] Last Admin: 10/14/20 07:45 Dose: 2 puff Documented by: Nitroglycerin (Nitroglycerin 2% Ointment 1 Inch/1 Gm Packet) 0.5 inch TOP Q8HR [facility] Last Admin: 10/14/20 05:08 Dose: 0.5 inch Documented by: Sodium Chloride (Flush - Normal Saline 10 Ml Syringe) 10 ml IVF Q12HR [facility] Last Admin: 10/14/20 09:17 Dose: 10 ml Documented by: Sodium Chloride (Flush - Normal Saline 10 Ml Syringe) 10 ml IVF PRN PRN PRN Reason: Saline Flush Last Admin: 10/12/20 13:37 Dose: 10 ml Documented by: Vital Signs & Weight: Vital Signs Temp Pulse Pulse Resp BP BP BP 10/14/20 14:40 101 H 24 H 10/14/20 13:52 101 H 138/68 10/14/20 13:13 135/62 10/14/20 12:00 98.6 F 94 17 192/88 H 10/14/20 08:00 10/14/20 07:54 98.1 F 103 H 18 162/72 H 10/14/20 07:43 102 H 22 H 10/14/20 03:42 98 F 100 20 154/70 H Pulse Ox 10/14/20 14:40 96 10/14/20 13:52 10/14/20 13:13 10/14/20 12:00 98 10/14/20 08:00 96 10/14/20 07:54 96 10/14/20 07:43 97 10/14/20 03:42 98 Admit Weight 108 lb 14.4 oz Weight 108 lb 14.4 oz - Physical Exam General: alert & oriented x3, cachectic, other (mild distress, short of breath, ill-appearing elderly female) Neck: no bruit Cardiac: no murmur, S1/S2, other (distant heart sounds) Lungs: decreased breath sounds, oxygen Neuro: grossly intact, other Abdomen: active bowel sounds, soft, non-tender Extremities: no cyanosis, no clubbing, no edema, other: (decreased pulses bilateraly, she states she has delt with numbness and pain to her bilateral feet for years.) Skin: brusing, other (thin, fragile skin, scattered bruising to bilateral arms) Musculoskeletal: no pain - Labs Result Diagrams: 10/11/20 06:34 10/12/20 04:17 Troponin/CKMB CK-MB (CK-2) 3.3 ng/mL (0-6.6) 10/10/20 17:53 Troponin I 0.049 ng/mL (< 0.028) H 10/10/20 23:50 - EKG Interpretation EKG Method: Telemetry EKG: sinus rhythm - Assessment/Plan Assessment/Plan: 1. Right atrial mass: waiting for biopsy results that will be completed on Saturday from lung mass 2. COPD: treated by primary care services, she is short of breath upon examination, she is requiring oxygen via nasal cannula 3. Lung mass: plan for biopsy Saturday 4. Peripheral vascular disease: she has decreased pulses to her bilateral lower extremities, she states that she has delt with pain, numbness, tingling, and discoloration to her BLE for years. She has a DIRECTOR PROSPECT to her right SFA with a 4x 40 mm Kamas Balloon catheter by Dr. Romo in 01/2013. 5. History of CVA 6. Dysphagia: patient complains for trouble swallowing for several months, she states she never reported this to anyone. She denies any weight loss but reports she does not weigh herself. GI consult ordered. Continue current treatment plan, will await biopsy results. I agree with the above A/P. jaz
--- NOTE | 2020-10-14 22:19 | CON ---
DATE OF CONSULTATION: 10/14/2020 CHIEF COMPLAINT: Shortness of breath. HISTORY OF PRESENT ILLNESS: Ms. Ji is a 79-year-old woman who is admitted with shortness of breath. She had a CT scan of her chest that showed a spiculated 5 cm lung mass concerning for cancer. She was also found to have a mass in her right atrium which is being evaluated by Cardiology. She is being treated for COPD exacerbation with steroids, antibiotics, and nebulizers. She reported progressive dysphagia to solids, primarily breads and some meats. This has been ongoing over the last 6 months, around 2 or 3 days per week. She will feel the food gets stuck in the lower substernal level and then she can drink water and sometimes push the bolus through and other times she will just vomit the bolus back up. She has had weight loss. She has had shortness of breath. No diarrhea, constipation, or blood in the stool. She has not had prior endoscopy or colonoscopy. PAST MEDICAL HISTORY: Severe COPD, hypertension, stroke. PAST SURGICAL HISTORY: Negative. FAMILY HISTORY: Positive for a son with rectal cancer and a brother with bladder cancer. She has had a brother with throat cancer and a brother with lung cancer. SOCIAL HISTORY: She quit smoking 7 years ago. No drugs or alcohol. ALLERGIES: PENICILLIN. MEDICATIONS: Include; 1. Enoxaparin. 2. Levofloxacin. 3. Methylprednisolone. 4. Inhalers. REVIEW OF SYSTEMS: Negative x10 systems reviewed except as stated in History of Present Illness. PHYSICAL EXAMINATION: VITAL SIGNS: Temperature 97.8, pulse 92, blood pressure 124/69. GENERAL: She is frail, somewhat tachypneic. LUNGS: Clear to auscultation bilaterally. HEART: Regular rate and rhythm without murmur. ABDOMEN: Soft, nontender, and nondistended. Bowel sounds are present. EXTREMITIES: No lower extremity edema. She has peripheral muscle wasting. LABORATORY DATA: White blood cell count 5.1, hemoglobin 12.2, platelets 151, creatinine 1.05, bilirubin 0.6, AST 21, ALT 13, alkaline phosphatase 44, albumin 3.9. IMPRESSION: 1. Exacerbation of chronic obstructive pulmonary disease. 2. Lung mass and atrial mass concerning for lung cancer. 3. Esophageal dysphagia. This has been progressive over the last 6 months and sometimes she has to vomit the food bolus up and sometimes she can wash the bolus down with drinking water. This occurs 2 or 3 days per week. RECOMMENDATIONS: 1. Proton pump inhibitor. 2. If her pulmonary status improves to the point that she can undergo upper endoscopy and if it is felt that upper endoscopy would change her management then we can perform this procedure, potentially with esophageal dilation or biopsy. For now, I will defer to Pulmonology. Job ID: [id number]
[2020-10-15] MEDS: Acetaminophen 325 MG TAB PO PRN ×2 (00:19→05:13)
[2020-10-15] MEDS: Lorazepam 2 MG/ML VIAL SLOW IVP PRN ×2 (00:20→09:16)
[2020-10-15] MEDS: Nitroglycerin 2% Ointment 1 INCH/1 GM Packet TOP SCH ×3 (05:14→22:19)
[2020-10-15] MEDS: Mometasone 200 MCG/Formoterol 5 MCG 120 PUFF INHALER INH SCH ×2 (08:47→19:01)
[2020-10-15] MEDS: methylPREDNISolone Sod Succ 40 MG VIAL IVP SCH ×2 (08:48→20:27)
[2020-10-15] MEDS: Enoxaparin Sodium 40 MG/0.4 ML SYRINGE SC SCH (08:49)
--- NOTE | 2020-10-15 11:59 | PRG ---
DATE OF SERVICE: 10/15/2020 SUBJECTIVE: Ms. Ji has had shortness of breath and felt a little better after breathing treatment, but still feels like it is hard to catch a full breath. OBJECTIVE: VITAL SIGNS: Temperature is 97.5, pulse 95, blood pressure 134/92. GENERAL: She is in no acute distress and somewhat tachypneic. LUNGS: Have poor air flow, but no obvious wheezing. HEART: Regular rate and rhythm without murmur. ABDOMEN: Soft, nontender, nondistended. Bowel sounds are present. EXTREMITIES: No lower extremity edema. IMPRESSION: 1. Chronic obstructive pulmonary disease exacerbation. 2. Lung mass concerning for lung cancer. 3. Right atrial mass. 4. Esophageal dysphagia. RECOMMENDATIONS: 1. She has been started on proton pump inhibitor. 2. Upper endoscopy can be performed as her respiratory status improves, if this is anticipated that will change or alter management once she completes her pulmonary and oncology workup. I will be available as needed. I will sign off for now, but please call if her clinical status changes. Job ID: [id number]
[2020-10-15] MEDS: Lorazepam 0.5 MG TAB PO PRN ×2 (15:28→19:33)
[2020-10-15] MEDS: cloNIDine 0.1 MG TAB PO PRN (15:46)
--- NOTE | 2020-10-15 16:48 | PDOC.CPN ---
- Subjective Date: 10/15/20 Time: 16:46 Interval history: No new issues. SOB unchanged today. - Review of Systems General: denies: fever/chills, weight/appetite/sleep changes, night sweats, fatigue Respiratory: reports: shortness of breath. denies: cough, congestion, exercise intolerance Cardiovascular: denies: chest pain, palpitation, edema, paroxysmal nocturnal dyspnea, orthopnea Gastrointestinal: denies: nausea, vomiting, diarrhea, constipation, abd pain, GI bleeding Musculoskeletal: denies: pain, tenderness, stiffness, swelling, arthritis/arthra lgias Neurological: denies: numbness, syncope, seizure, weakness - Objective Allergies/Adverse Reactions: Allergies Allergy/AdvReac Type Severity Reaction Status Date / Time Penicillins Allergy Rash Verified 10/11/20 02:22 Visit Medications: Current Medications Acetaminophen (Acetaminophen 325 Mg Tab) 650 mg PO Q4H PRN PRN Reason: Headache/Fever/Mild Pain (1-3) Last Admin: 10/15/20 05:13 Dose: 650 mg Documented by: Albuterol/Ipratropium (Ipratropium/Albuterol Sulfate 3 Ml Neb) 3 ml NEB [id number] JOSE Last Admin: 10/15/20 15:32 Dose: 3 ml Documented by: Albuterol/Ipratropium (Ipratropium/Albuterol Sulfate 3 Ml Neb) 3 ml IPPB Q2HR- RT PRN PRN Reason: SOB &/or Wheezing Last Admin: 10/13/20 05:22 Dose: 3 ml Documented by: Clonidine (Clonidine 0.1 Mg Tab) 0.1 mg PO Q4H PRN PRN Reason: SBP Greater Than 180 Last Admin: 10/15/20 15:46 Dose: 0.1 mg Documented by: Enoxaparin Sodium (Enoxaparin Sodium 40 Mg/0.4 Ml Syringe) 40 mg SC 0900 JOSE Last Admin: 10/15/20 08:49 Dose: 40 mg Documented by: Hydralazine HCl (Hydralazine 20 Mg/Ml Vial) 5 mg SLOW IVP Q4H PRN PRN Reason: Hypertension Last Admin: 10/13/20 04:43 Dose: 5 mg Documented by: Levofloxacin (Levofloxacin 500 Mg Tab) 500 mg PO 0600 JOSE Stop: 10/18/20 06:01 Last Admin: 10/15/20 05:13 Dose: 500 mg Documented by: Lorazepam (Lorazepam 2 Mg/Ml Vial) 0.25 mg SLOW IVP Q6H PRN PRN Reason: Anxiety Last Admin: 10/15/20 09:16 Dose: 0.25 mg Documented by: Lorazepam (Lorazepam 0.5 Mg Tab) 0.5 mg PO Q4H PRN PRN Reason: Anxiety Last Admin: 10/15/20 15:28 Dose: 0.5 mg Documented by: Methylprednisolone Sodium Succinate (Methylprednisolone Sod Succ 40 Mg Vial) 40 mg IVP BID [facility] Last Admin: 10/15/20 08:48 Dose: 40 mg Documented by: Mometasone Furoate/Formoterol Fumar (Mometasone 200 Mcg/Formoterol 5 Mcg 120 Puff Inhaler) 2 puff INH BID-RT [facility] Last Admin: 10/15/20 08:47 Dose: 2 puff Documented by: Nitroglycerin (Nitroglycerin 2% Ointment 1 Inch/1 Gm Packet) 0.5 inch TOP Q8HR [facility] Last Admin: 10/15/20 13:04 Dose: Not Given Documented by: Pantoprazole Sodium (Pantoprazole 40 Mg Tab) 40 mg PO DAILY [facility] Last Admin: 10/15/20 08:49 Dose: 40 mg Documented by: Sodium Chloride (Flush - Normal Saline 10 Ml Syringe) 10 ml IVF Q12HR [facility] Last Admin: 10/15/20 08:49 Dose: 10 ml Documented by: Sodium Chloride (Flush - Normal Saline 10 Ml Syringe) 10 ml IVF PRN PRN PRN Reason: Saline Flush Last Admin: 10/12/20 13:37 Dose: 10 ml Documented by: Vital Signs & Weight: Vital Signs Temp Pulse Resp BP BP Pulse Ox 10/15/20 15:32 103 H 18 100 10/15/20 15:30 97.2 F L 107 H 19 189/82 H 91 L 10/15/20 12:00 97.4 F L 92 20 146/76 H 96 10/15/20 08:47 95 20 98 10/15/20 08:00 97.5 F L 94 20 134/92 H 98 Admit Weight 108 lb 14.4 oz Weight 108 lb 4.8 oz - Physical Exam General: alert & oriented x3 HEENT: mucus membranes moist Neck: supple neck Cardiac: tachycardia Lungs: normal breath sounds Neuro: grossly intact Abdomen: active bowel sounds Extremities: no edema Skin: clear Musculoskeletal: no pain - Labs Result Diagrams: 10/11/20 06:34 10/12/20 04:17 Troponin/CKMB CK-MB (CK-2) 3.3 ng/mL (0-6.6) 10/10/20 17:53 Troponin I 0.049 ng/mL (< 0.028) H 10/10/20 23:50 - Telemetry Sinus rhythms and dysrhythmias: sinus tachycardia - Assessment/Plan Assessment/Plan: 1. Right atrial mass. 2. COPD 3. Lung mass 4. Peripheral vascular disease 5. History of CVA 6. Dysphagia PLAN: - Lung Biopsy saturday
--- NOTE | 2020-10-15 18:38 | PDOC.HOSPP ---
- Subjective Subjective: Patient was seen examined at bedside. Patient is quite anxious, required IV Ativan today. Discussed with her daughter at bedside. No fever. Patient remains on 2 L via nasal cannula. Her lab has been stable, no new lab recently. - Objective Vital Signs & Weight: Vital Signs (12 hours) Temp Pulse Resp BP BP Pulse Ox 10/15/20 15:32 103 H 18 100 10/15/20 15:30 97.2 F L 107 H 19 189/82 H 91 L 10/15/20 12:00 97.4 F L 92 20 146/76 H 96 10/15/20 08:47 95 20 98 10/15/20 08:00 97.5 F L 94 20 134/92 H 98 Weight Admit Weight 108 lb 14.4 oz Weight 108 lb 4.8 oz I&O: 10/14/20 10/15/20 10/16/20 06:59 06:59 06:59 Intake Total 580 2124 1000 Output Total 450 2231 400 Balance 130 -107 600 Result Diagrams: 10/11/20 06:34 10/12/20 04:17 Radiology Reviewed by me: Yes EKG Reviewed by me: Yes Hospitalist ROS - Medication Medications: Active Medications Generic Name Dose Route Start Last Admin Trade Name Freq PRN Reason Stop Dose Admin Acetaminophen 650 mg 10/11/20 21:58 10/15/20 05:13 Acetaminophen 325 Mg Tab PO 650 mg Q4H PRN Administration Headache/Fever/Mild Pain (1-3) Albuterol/Ipratropium 3 ml 10/11/20 01:00 10/15/20 15:32 Ipratropium/Albuterol Sulfate 3 Ml Neb NEB 3 ml [id number] JOSE Administration Albuterol/Ipratropium 3 ml 10/10/20 22:51 10/13/20 05:22 Ipratropium/Albuterol Sulfate 3 Ml Neb IPPB 3 ml [id number] PRN Administration SOB &/or Wheezing Clonidine 0.1 mg 10/11/20 23:09 10/15/20 15:46 Clonidine 0.1 Mg Tab PO 0.1 mg Q4H PRN Administration SBP Greater Than 180 Enoxaparin Sodium 40 mg 10/11/20 09:00 10/15/20 08:49 Enoxaparin Sodium 40 Mg/0.4 Ml Syringe SC 40 mg 0900 JOSE Administration Hydralazine HCl 5 mg 10/10/20 22:55 10/13/20 04:43 Hydralazine 20 Mg/Ml Vial SLOW IVP 5 mg Q4H PRN Administration Hypertension Levofloxacin 500 mg 10/13/20 06:00 10/15/20 05:13 Levofloxacin 500 Mg Tab PO 10/18/20 06:01 500 mg 0600 JOSE Administration Lorazepam 0.25 mg 10/12/20 13:59 10/15/20 09:16 Lorazepam 2 Mg/Ml Vial SLOW IVP 0.25 mg Q6H PRN Administration Anxiety Lorazepam 0.5 mg 10/15/20 14:50 10/15/20 15:28 Lorazepam 0.5 Mg Tab PO 0.5 mg Q4H PRN Administration Anxiety Methylprednisolone Sodium Succinate 40 mg 10/13/20 09:00 10/15/20 08:48 Methylprednisolone Sod Succ 40 Mg Vial IVP 40 mg BID JOSE Administration Mometasone Furoate/Formoterol Fumar 2 puff 10/11/20 18:30 10/15/20 08:47 Mometasone 200 Mcg/Formoterol 5 Mcg 120 Puff Inhaler INH 2 puff BID-RT JOSE Administration Nitroglycerin 0.5 inch 10/12/20 06:00 10/15/20 13:04 Nitroglycerin 2% Ointment 1 Inch/1 Gm Packet TOP Not Given Q8HR JOSE Pantoprazole Sodium 40 mg 10/15/20 09:00 10/15/20 08:49 Pantoprazole 40 Mg Tab PO 40 mg DAILY JOSE Administration Sodium Chloride 10 ml 10/11/20 09:00 10/15/20 08:49 Flush - Normal Saline 10 Ml Syringe IVF 10 ml Q12HR JOSE Administration Sodium Chloride 10 ml 10/10/20 23:15 10/12/20 13:37 Flush - Normal Saline 10 Ml Syringe IVF 10 ml PRN PRN Administration Saline Flush Hospitalist Exam Vitals: Vital Signs (12 hours) Temp Pulse Resp BP BP Pulse Ox 10/15/20 15:32 103 H 18 100 10/15/20 15:30 97.2 F L 107 H 19 189/82 H 91 L 10/15/20 12:00 97.4 F L 92 20 146/76 H 96 10/15/20 08:47 95 20 98 10/15/20 08:00 97.5 F L 94 20 134/92 H 98 Weight Admit Weight 108 lb 14.4 oz Weight 108 lb 4.8 oz General Appearance: NAD Eye: PERRL ENT: normocephalic atraumatic Neck: supple Heart: RRR Respiratory: wheezes Gastrointestinal: soft Extremities: no cyanosis Skin: normal turgor Neurological: cranial nerve grossly intact Musculoskeletal: normal tone Psychiatric: normal affect, normal behavior, A&O x 3 Hosp A/P (1) AAA (abdominal aortic aneurysm) Code(s): I71.4 - ABDOMINAL AORTIC ANEURYSM, WITHOUT RUPTURE Status: Acute (2) Anxiety Code(s): F41.9 - ANXIETY DISORDER, UNSPECIFIED Status: Acute (3) Atrial mass Code(s): I51.89 - OTHER ILL-DEFINED HEART DISEASES Status: Acute (4) COPD exacerbation Code(s): J44.1 - CHRONIC OBSTRUCTIVE PULMONARY DISEASE W (ACUTE) EXACERBATION Status: Acute (5) Esophageal dysphagia Code(s): R13.10 - DYSPHAGIA, UNSPECIFIED Status: Acute (6) Hypertension Code(s): I10 - ESSENTIAL (PRIMARY) HYPERTENSION Status: Acute (7) Lung mass Code(s): R91.8 - OTHER NONSPECIFIC ABNORMAL FINDING OF LUNG FIELD Status: Acute (8) Thoracic aortic aneurysm (TAA) Code(s): I71.2 - THORACIC AORTIC ANEURYSM, WITHOUT RUPTURE Status: Acute (9) Dehydration Code(s): E86.0 - DEHYDRATION Status: Acute (10) Fall at home Code(s): W19.XXXA - UNSPECIFIED FALL, INITIAL ENCOUNTER; Y92.099 - UNSP PLACE IN [facility] NON-INSTITUTIONAL RESIDENCE PLACE Status: Acute (11) Rhabdomyolysis Code(s): M62.82 - RHABDOMYOLYSIS Status: Acute (12) UTI (urinary tract infection) due to Enterococcus Code(s): N39.0 - URINARY TRACT INFECTION, SITE NOT SPECIFIED; B95.2 - ENTEROCOCCUS THE CAUSE OF DISEASES CLASSIFIED ELSEWHERE Status: Acute - Plan COPD exacerbation: Pulmonary following. Continue bronchodilators, steroids, antibiotics add PO anxiolytic. Rpt labs in AM Acute on chronic hypoxic respiratory failure: Continue 2 L nasal cannula as needed. Lung mass: Patient will need a biopsy. Looks like she is willing to undergo treatment although she says she would not be able to get back and forth for radiation therapy if that was indicated. Patient will need to be more medically stable in order to entertain possible biopsy options. Pulmonology is following, and make further decision early next week based on her respiratory status Atrial mass: Noted on echocardiogram. Cardiology following. Biopsy would be indicated once the patient is stable and she is willing to pursue treatment. Esophageal dysphagia: Consult GI. Patient has had this for a while but has not had prior evaluation nor endoscopy. appreciate GI input. will cont PPI for now. EDUARDO: Patient's prior GFR was typically in the normal range back in 2014. Currently her GFR is ranged from 46-64. This may represent chronic change that has occurred since 2014 or acute kidney injury. GFR appears to be roughly stable during this admission. Cr normalized Indeterminate troponins: Likely represents NSTEMI type II secondary to hypoxic respiratory failure. No further work-up indicated at this time. Hyperglycemia: Patient has had subtle hyperglycemia intermittently. Continue to monitor. Hypertension: Blood pressure has generally been running high throughout this admission. Does not appear that the patient has been on antihypertensives previously to this admission. We will add amlodipine for now. Anxiety: Patient has lorazepam as needed. Thoracic and abdominal aortic aneurysmal dilatations: Do not appear to be large enough to consider surgical intervention. Defer to cardiology.
[2020-10-16 04:54] LABS: INR-International Normal Ratio 1.1; Prothrombin Time 13.9 sec (12.0-14.7)
[2020-10-16 04:55] LABS: #Basophils 0.1 thou/uL (0.0-0.2); #Lymphocytes 0.3 thou/uL (1.20-3.40); #Monocytes 0.2 thou/uL (0.11-0.59); #Neutrophils 2.7 thou/uL (1.40-6.50); %Basophils 2.1 % (0.0-1.0); %Lymphocytes 8.5 % (21.0-51.0); %Monocytes 6.1 % (0.0-10.0); %Neutrophils 83.3 % (42.0-75.0); Hemoglobin 10.3 g/dL (12.0-16.0); Mean Corpuscular HGB CONC 32.3 g/dL (32.0-36.0); Mean Corpuscular Hemoglobin 31.2 pg (27.0-31.0); Mean Corpuscular Volume 96.7 fL (78.0-98.0); Mean Platelet Volume 8.5 fL (7.4-10.4); Platelet Count 114 thou/uL (130-400); RBC Distribution Width 12.9 % (11.5-14.5); Red Blood Cell (RBC) Count 3.29 mill/uL (4.20-5.40); White Blood Cell (WBC) Count 3.2 thou/uL (4.8-10.8)
[2020-10-16 05:10] LABS: Anion Gap 12 mmol/L (10-20); BUN (Urea Nitrogen) 44 mg/dL (9.8-20.1); Calc. Creatinine Clearance 41 mL/min (70-130); Calcium 8.8 mg/dL (7.8-10.44); Carbon Dioxide 32 mmol/L (23-31); Chloride 99 mmol/L (98-107); Glucose 121 mg/dL (83-110); Potassium 4.8 mmol/L (3.5-5.1); Sodium 138 mmol/L (136-145)
[2020-10-16] MEDS: Nitroglycerin 2% Ointment 1 INCH/1 GM Packet TOP SCH ×3 (05:44→20:09)
[2020-10-16] MEDS: Mometasone 200 MCG/Formoterol 5 MCG 120 PUFF INHALER INH SCH ×2 (07:08→18:51)
[2020-10-16] MEDS: Enoxaparin Sodium 40 MG/0.4 ML SYRINGE SC SCH (08:56)
[2020-10-16] MEDS: methylPREDNISolone Sod Succ 40 MG VIAL IVP SCH ×2 (08:57→20:09)
[2020-10-16] MEDS: Lorazepam 0.5 MG TAB PO PRN ×3 (08:57→20:08)
--- NOTE | 2020-10-16 15:33 | PDOC.HOSPP ---
- Subjective Subjective: Patient was seen examined at bedside. Nursing staff report that her anxiety is much better. She is currently stable on 2 L as needed. She denies any chest pain. Not short of breath - Objective Vital Signs & Weight: Vital Signs (12 hours) Temp Pulse Pulse Pulse Resp BP BP 10/16/20 15:29 98.1 F 91 20 10/16/20 14:12 88 16 10/16/20 12:50 90 86 136/65 131/63 10/16/20 12:00 97.3 F L 99 20 10/16/20 08:00 97.4 F L 87 23 H 10/16/20 07:07 86 16 10/16/20 04:00 98.5 F 92 20 BP Pulse Ox Pulse Ox Pulse Ox 10/16/20 15:29 137/67 98 10/16/20 14:12 99 10/16/20 12:50 98 95 10/16/20 12:00 142/65 H 97 10/16/20 08:00 136/63 95 10/16/20 07:07 98 10/16/20 04:00 127/66 98 Weight Admit Weight 108 lb 14.4 oz Weight 110 lb 14.4 oz I&O: 10/15/20 10/16/20 10/17/20 06:59 06:59 06:59 Intake Total 2124 1237 400 Output Total 2231 680 101 Balance -107 557 299 Result Diagrams: 10/16/20 04:18 10/16/20 04:18 Radiology Reviewed by me: Yes EKG Reviewed by me: Yes Hospitalist ROS - Medication Medications: Active Medications Generic Name Dose Route Start Last Admin Trade Name Freq PRN Reason Stop Dose Admin Acetaminophen 650 mg 10/11/20 21:58 10/15/20 05:13 Acetaminophen 325 Mg Tab PO 650 mg Q4H PRN Administration Headache/Fever/Mild Pain (1-3) Albuterol/Ipratropium 3 ml 10/11/20 01:00 10/16/20 14:12 Ipratropium/Albuterol Sulfate 3 Ml Neb NEB 3 ml [id number] JOSE Administration Albuterol/Ipratropium 3 ml 10/10/20 22:51 10/13/20 05:22 Ipratropium/Albuterol Sulfate 3 Ml Neb IPPB 3 ml [id number] PRN Administration SOB &/or Wheezing Clonidine 0.1 mg 10/11/20 23:09 10/15/20 15:46 Clonidine 0.1 Mg Tab PO 0.1 mg Q4H PRN Administration SBP Greater Than 180 Enoxaparin Sodium 40 mg 10/11/20 09:00 10/16/20 08:56 Enoxaparin Sodium 40 Mg/0.4 Ml Syringe SC 40 mg 0900 JOSE Administration Hydralazine HCl 5 mg 10/10/20 22:55 10/13/20 04:43 Hydralazine 20 Mg/Ml Vial SLOW IVP 5 mg Q4H PRN Administration Hypertension Levofloxacin 500 mg 10/13/20 06:00 10/16/20 05:44 Levofloxacin 500 Mg Tab PO 10/18/20 06:01 500 mg 0600 JOSE Administration Lorazepam 0.25 mg 10/12/20 13:59 10/15/20 09:16 Lorazepam 2 Mg/Ml Vial SLOW IVP 0.25 mg Q6H PRN Administration Anxiety Lorazepam 0.5 mg 10/15/20 14:50 10/16/20 13:14 Lorazepam 0.5 Mg Tab PO 0.5 mg Q4H PRN Administration Anxiety Methylprednisolone Sodium Succinate 40 mg 10/13/20 09:00 10/16/20 08:57 Methylprednisolone Sod Succ 40 Mg Vial IVP 40 mg BID JOSE Administration Mometasone Furoate/Formoterol Fumar 2 puff 10/11/20 18:30 10/16/20 07:08 Mometasone 200 Mcg/Formoterol 5 Mcg 120 Puff Inhaler INH 2 puff BID-RT JOSE Administration Nitroglycerin 0.5 inch 10/12/20 06:00 10/16/20 13:13 Nitroglycerin 2% Ointment 1 Inch/1 Gm Packet TOP 0.5 inch Q8HR JOSE Administration Pantoprazole Sodium 40 mg 10/15/20 09:00 10/16/20 08:57 Pantoprazole 40 Mg Tab PO 40 mg DAILY JOSE Administration Sodium Chloride 10 ml 10/11/20 09:00 10/16/20 12:52 Flush - Normal Saline 10 Ml Syringe IVF Not Given Q12HR JOSE Sodium Chloride 10 ml 10/10/20 23:15 10/12/20 13:37 Flush - Normal Saline 10 Ml Syringe IVF 10 ml PRN PRN Administration Saline Flush Hospitalist Exam Vitals: Vital Signs (12 hours) Temp Pulse Pulse Pulse Resp BP BP 10/16/20 15:29 98.1 F 91 20 10/16/20 14:12 88 16 10/16/20 12:50 90 86 136/65 131/63 10/16/20 12:00 97.3 F L 99 20 10/16/20 08:00 97.4 F L 87 23 H 10/16/20 07:07 86 16 10/16/20 04:00 98.5 F 92 20 BP Pulse Ox Pulse Ox Pulse Ox 10/16/20 15:29 137/67 98 10/16/20 14:12 99 10/16/20 12:50 98 95 10/16/20 12:00 142/65 H 97 10/16/20 08:00 136/63 95 10/16/20 07:07 98 10/16/20 04:00 127/66 98 Weight Admit Weight 108 lb 14.4 oz Weight 110 lb 14.4 oz General Appearance: NAD Eye: PERRL ENT: normocephalic atraumatic Neck: supple Heart: RRR Respiratory: wheezes Gastrointestinal: soft Extremities: no cyanosis Skin: normal turgor Neurological: cranial nerve grossly intact Musculoskeletal: normal tone Psychiatric: normal affect, normal behavior, A&O x 3 Hosp A/P (1) AAA (abdominal aortic aneurysm) Code(s): I71.4 - ABDOMINAL AORTIC ANEURYSM, WITHOUT RUPTURE Status: Acute (2) Anxiety Code(s): F41.9 - ANXIETY DISORDER, UNSPECIFIED Status: Acute (3) Atrial mass Code(s): I51.89 - OTHER ILL-DEFINED HEART DISEASES Status: Acute (4) COPD exacerbation Code(s): J44.1 - CHRONIC OBSTRUCTIVE PULMONARY DISEASE W (ACUTE) EXACERBATION Status: Acute (5) Esophageal dysphagia Code(s): R13.10 - DYSPHAGIA, UNSPECIFIED Status: Acute (6) Hypertension Code(s): I10 - ESSENTIAL (PRIMARY) HYPERTENSION Status: Acute (7) Lung mass Code(s): R91.8 - OTHER NONSPECIFIC ABNORMAL FINDING OF LUNG FIELD Status: Acute (8) Thoracic aortic aneurysm (TAA) Code(s): I71.2 - THORACIC AORTIC ANEURYSM, WITHOUT RUPTURE Status: Acute (9) Dehydration Code(s): E86.0 - DEHYDRATION Status: Acute (10) Fall at home Code(s): W19.XXXA - UNSPECIFIED FALL, INITIAL ENCOUNTER; Y92.099 - UNSP PLACE IN OTH NON-INSTITUTIONAL RESIDENCE PLACE Status: Acute (11) Rhabdomyolysis Code(s): M62.82 - RHABDOMYOLYSIS Status: Acute (12) UTI (urinary tract infection) due to Enterococcus Code(s): N39.0 - URINARY TRACT INFECTION, SITE NOT SPECIFIED; B95.2 - ENTEROCOCCUS THE CAUSE OF DISEASES CLASSIFIED ELSEWHERE Status: Acute - Plan COPD exacerbation: Pulmonary following. Continue bronchodilators, steroids, antibiotics add PO anxiolytic. Labs stable. Will hold off on daily lab draw Acute on chronic hypoxic respiratory failure: Continue 2 L nasal cannula as needed. Lung mass: Patient will need a biopsy. Looks like she is willing to undergo treatment although she says she would not be able to get back and forth for radiation therapy if that was indicated. Patient will need to be more medically stable in order to entertain possible biopsy options. Pulmonology is following, and make further decision early next week based on her respiratory status Atrial mass: Noted on echocardiogram. Cardiology following. Biopsy would be indicated once the patient is stable and she is willing to pursue treatment. Esophageal dysphagia: Consult GI. Patient has had this for a while but has not had prior evaluation nor endoscopy. appreciate GI input. will cont PPI for now. EDUARDO: Patient's prior GFR was typically in the normal range back in 2014. Currently her GFR is ranged from 46-64. This may represent chronic change that has occurred since 2014 or acute kidney injury. GFR appears to be roughly stable during this admission. Cr normalized Indeterminate troponins: Likely represents NSTEMI type II secondary to hypoxic respiratory failure. No further work-up indicated at this time. Hyperglycemia: Patient has had subtle hyperglycemia intermittently. Continue to monitor. Hypertension: Blood pressure has generally been running high throughout this admission. Does not appear that the patient has been on antihypertensives previously to this admission. We will add amlodipine for now. Anxiety: Patient has lorazepam as needed. Thoracic and abdominal aortic aneurysmal dilatations: Do not appear to be large enough to consider surgical intervention. Defer to cardiology.
--- NOTE | 2020-10-16 16:37 | PDOC.CPN ---
- Subjective Date: 10/16/20 Time: 16:36 Interval history: No new issues. No new complaints. - Review of Systems General: reports: fatigue. denies: fever/chills, weight/appetite/sleep changes, night sweats Respiratory: reports: shortness of breath, exercise intolerance. denies: cough, congestion Cardiovascular: denies: chest pain, palpitation, edema, paroxysmal nocturnal dyspnea, orthopnea Gastrointestinal: denies: nausea, vomiting, diarrhea, constipation, abd pain, GI bleeding Musculoskeletal: denies: pain, tenderness, stiffness, swelling, arthriti s/arthralgias Neurological: denies: numbness, syncope, seizure, weakness - Objective Allergies/Adverse Reactions: Allergies Allergy/AdvReac Type Severity Reaction Status Date / Time Penicillins Allergy Rash Verified 10/11/20 02:22 Visit Medications: Current Medications Acetaminophen (Acetaminophen 325 Mg Tab) 650 mg PO Q4H PRN PRN Reason: Headache/Fever/Mild Pain (1-3) Last Admin: 10/15/20 05:13 Dose: 650 mg Documented by: Albuterol/Ipratropium (Ipratropium/Albuterol Sulfate 3 Ml Neb) 3 ml NEB [id number] JOSE Last Admin: 10/16/20 14:12 Dose: 3 ml Documented by: Albuterol/Ipratropium (Ipratropium/Albuterol Sulfate 3 Ml Neb) 3 ml IPPB Q2HR- RT PRN PRN Reason: SOB &/or Wheezing Last Admin: 10/13/20 05:22 Dose: 3 ml Documented by: Clonidine (Clonidine 0.1 Mg Tab) 0.1 mg PO Q4H PRN PRN Reason: SBP Greater Than 180 Last Admin: 10/15/20 15:46 Dose: 0.1 mg Documented by: Enoxaparin Sodium (Enoxaparin Sodium 40 Mg/0.4 Ml Syringe) 40 mg SC 0900 JOSE Last Admin: 10/16/20 08:56 Dose: 40 mg Documented by: Hydralazine HCl (Hydralazine 20 Mg/Ml Vial) 5 mg SLOW IVP Q4H PRN PRN Reason: Hypertension Last Admin: 10/13/20 04:43 Dose: 5 mg Documented by: Levofloxacin (Levofloxacin 500 Mg Tab) 500 mg PO 0600 [facility] Stop: 10/18/20 06:01 Last Admin: 10/16/20 05:44 Dose: 500 mg Documented by: Lorazepam (Lorazepam 2 Mg/Ml Vial) 0.25 mg SLOW IVP Q6H PRN PRN Reason: Anxiety Last Admin: 10/15/20 09:16 Dose: 0.25 mg Documented by: Lorazepam (Lorazepam 0.5 Mg Tab) 0.5 mg PO Q4H PRN PRN Reason: Anxiety Last Admin: 10/16/20 13:14 Dose: 0.5 mg Documented by: Methylprednisolone Sodium Succinate (Methylprednisolone Sod Succ 40 Mg Vial) 40 mg IVP BID [facility] Last Admin: 10/16/20 08:57 Dose: 40 mg Documented by: Mometasone Furoate/Formoterol Fumar (Mometasone 200 Mcg/Formoterol 5 Mcg 120 Puff Inhaler) 2 puff INH BID-RT [facility] Last Admin: 10/16/20 07:08 Dose: 2 puff Documented by: Nitroglycerin (Nitroglycerin 2% Ointment 1 Inch/1 Gm Packet) 0.5 inch TOP Q8HR [facility] Last Admin: 10/16/20 13:13 Dose: 0.5 inch Documented by: Pantoprazole Sodium (Pantoprazole 40 Mg Tab) 40 mg PO DAILY [facility] Last Admin: 10/16/20 08:57 Dose: 40 mg Documented by: Sodium Chloride (Flush - Normal Saline 10 Ml Syringe) 10 ml IVF Q12HR [facility] Last Admin: 10/16/20 12:52 Dose: Not Given Documented by: Sodium Chloride (Flush - Normal Saline 10 Ml Syringe) 10 ml IVF PRN PRN PRN Reason: Saline Flush Last Admin: 10/12/20 13:37 Dose: 10 ml Documented by: Vital Signs & Weight: Vital Signs Temp Pulse Pulse Pulse Resp BP BP 10/16/20 15:29 98.1 F 91 20 10/16/20 14:12 88 16 10/16/20 12:50 90 86 136/65 131/63 10/16/20 12:00 97.3 F L 99 20 10/16/20 08:00 97.4 F L 87 23 H 10/16/20 07:07 86 16 BP Pulse Ox Pulse Ox Pulse Ox 10/16/20 15:29 137/67 98 10/16/20 14:12 99 02/28/21 12:50 98 95 10/16/20 12:00 142/65 H 97 10/16/20 08:00 136/63 95 10/16/20 07:07 98 Admit Weight 108 lb 14.4 oz Weight 110 lb 14.4 oz - Physical Exam General: alert & oriented x3 HEENT: mucus membranes moist Neck: supple neck Cardiac: regular rate and rhythm Lungs: clear to auscultation Neuro: grossly intact Abdomen: active bowel sounds Extremities: no edema Skin: clear Musculoskeletal: no pain - Labs Result Diagrams: 10/16/20 04:18 10/16/20 04:18 Troponin/CKMB CK-MB (CK-2) 3.3 ng/mL (0-6.6) 10/10/20 17:53 Troponin I 0.049 ng/mL (< 0.028) H 10/10/20 23:50 - Telemetry Sinus rhythms and dysrhythmias: sinus rhythm - Assessment/Plan Assessment/Plan: 1. Right atrial mass. 2. COPD 3. Lung mass 4. Peripheral vascular disease 5. History of CVA 6. Dysphagia PLAN: - Lung Biopsy tomorrow - CV stable. No new recs.
--- NOTE | 2020-10-16 18:44 | PDOC.PULPN ---
Progress Note: Subj/Obj - Subjective Date: 10/16/20 Time: 17:50 - ROS All systems: reviewed and no additional remarkable complaints except as stated (continued shortness of breath when nc turned to 1 liter) Respiratory: congestion, exercise intolerance, productive cough, short of breath - Objective Allergies/Adverse Reactions: Allergies Allergy/AdvReac Type Severity Reaction Status Date / Time Penicillins Allergy Rash Verified 10/11/20 02:22 Vital Signs: Vital Signs Temp 97.3 F L 10/16/20 16:00 Pulse 54 L 10/16/20 16:00 Resp 13 10/16/20 16:00 BP 108/54 L 10/16/20 16:00 Pulse Ox 99 10/16/20 16:00 Intake & Output 10/15/20 10/16/20 10/16/20 18:59 06:59 18:59 Intake Total 0126 511 4330 Output Total 400 280 303 Balance 600 -43 1097 Weight 110 lb 14.4 oz Intake: Oral 6671 011 1561 Output: Urine 400 280 300 Stool 3 Other: Voiding Method Diaper Diaper Diaper # Measured Voids 1 # Unmeasured Voids 2 Progress Note: Exam - Physical Exam Constitutional: NAD HEENT: moist MMs Neck: no JVD Cardiovascular: RRR Respiratory: rhonchi Focused Respiratory Location: rhonchi: Right, Left, Upper, Lower Gastrointestinal: soft, non-tender Progress Note: Data - Labs Result Diagrams: 10/16/20 04:18 10/16/20 04:18 Progress Note: A/P - Problems (1) Bronchitis Current Visit: Yes Status: Acute Code(s): J40 - BRONCHITIS, NOT SPECIFIED ACUTE OR CHRONIC Assessment and Plan: continue oxygen and bronchodilators consider bronch if does not clear (2) COPD exacerbation Current Visit: Yes Status: Acute Code(s): J44.1 - CHRONIC OBSTRUCTIVE PULMONARY DISEASE W (ACUTE) EXACERBATION Assessment and Plan: continue current tx plan - Time Spent with Patient Time (minutes): 15
[2020-10-16] MEDS: Acetaminophen 325 MG TAB PO PRN (23:58)
[2020-10-16] MEDS ORDERED: Melatonin 3 MG TAB PO SCH (23:59)
[2020-10-17] MEDS: Nitroglycerin 2% Ointment 1 INCH/1 GM Packet TOP SCH ×3 (06:18→20:37)
[2020-10-17] MEDS: Mometasone 200 MCG/Formoterol 5 MCG 120 PUFF INHALER INH SCH ×2 (07:27→18:33)
[2020-10-17] MEDS: methylPREDNISolone Sod Succ 40 MG VIAL IVP SCH ×2 (07:57→20:38)
[2020-10-17] MEDS: Lorazepam 0.5 MG TAB PO PRN (07:58)
[2020-10-17 08:30] VITALS: BMI 17.9
[2020-10-17] MEDS: Enoxaparin Sodium 40 MG/0.4 ML SYRINGE SC SCH (09:26)
[2020-10-17] MEDS: NIFEdipine XL 30 MG TAB PO SCH (09:44)
[2020-10-17] MEDS: Lorazepam 2 MG/ML VIAL SLOW IVP PRN (10:19)
--- NOTE | 2020-10-17 11:19 | PRG ---
DATE OF SERVICE: 10/17/2020 OBJECTIVE: VITAL SIGNS: This morning, temperature 97, pulse 84, sats 98% on 1 L, blood pressure 170/77. CHEST: Decreased breath sounds. No wheezing. CARDIAC: Normal S1. ABDOMEN: No masses. ASSESSMENT: Severe end-stage chronic obstructive pulmonary disease, left upper lung mass, DNR. The patient is all worked up this morning because she is going to have a biopsy. She is kept n.p.o. At this stage, I am going to discuss with Oncology to see whether if it is even attempting to do a biopsy. Obviously, she can be treated once she have a tissue diagnosis. But, overall risks for getting a biopsy are quite substantial. Oncology is going to see and make a decision. In the meantime, we are going to continue steroids, neb treatments, supportive care. Job ID: [id number]
[2020-10-17] MEDS ORDERED: Morphine 2 MG/ML VIAL SLOW IVP SCH (12:00)
[2020-10-17] MEDS: cloNIDine 0.1 MG TAB PO PRN (12:10)
[2020-10-17] MEDS: ALPRAZolam 0.25 MG TAB PO PRN (12:10)
--- NOTE | 2020-10-17 14:54 | PDOC.MOPN ---
Interval History: Patient in ICU and on Bipap. - Vital Signs Vital Signs: Vital Signs (12 hours) Temp Pulse Resp BP Pulse Ox 10/17/20 14:43 81 18 99 10/17/20 14:41 78 15 98 10/17/20 11:45 97.5 F L 117 H 29 H 180/134 H 94 L 10/17/20 09:44 84 10/17/20 07:54 97.5 F L 85 H 176/77 H 98 10/17/20 04:24 98 10/17/20 04:00 98.6 F 84 18 131/68 96 Weight Admit Weight 108 lb 14.4 oz Weight 110 lb 12.8 oz - Physical Exam General: Alert Lungs: Other Cardiovascular: Regular rate Abdomen: Normal bowel sounds Neurological: Normal speech - Labs Result Diagrams: 10/16/20 04:18 10/16/20 04:18 Status: lab reviewed by me A/P - Problem (1) COPD exacerbation Current Visit: Yes Code(s): J44.1 - CHRONIC OBSTRUCTIVE PULMONARY DISEASE W (ACUTE) EXACERBATION Status: Acute (2) Lung mass Current Visit: Yes Code(s): R91.8 - OTHER NONSPECIFIC ABNORMAL FINDING OF LUNG FIELD Status: Acute - Plan Plan: 1. Patient high risk biopsy of lung mass due to severe COPD 2. Now on BiPAP in ICU, she is a DNAR.
--- NOTE | 2020-10-17 16:03 | PDOC.HOSPP ---
- Subjective Encounter Date: 10/17/20 Subjective: Patient found this morning in respiratory distress, shortly after receiving nebulizer [place]. Transferred to the unit for HLOC - Objective Vital Signs & Weight: Vital Signs (12 hours) Temp Pulse Resp BP Pulse Ox 10/17/20 14:43 81 18 99 10/17/20 14:41 78 15 98 10/17/20 11:45 97.5 F L 117 H 29 H 180/134 H 94 L 10/17/20 09:44 84 10/17/20 07:54 97.5 F L 85 H 176/77 H 98 10/17/20 04:24 98 Weight Admit Weight 108 lb 14.4 oz Weight 110 lb 12.8 oz I&O: 10/16/20 10/17/20 10/18/20 06:59 06:59 06:59 Intake Total 1237 1760 0 Output Total 680 603 50 Balance 557 1157 -50 Result Diagrams: 10/16/20 04:18 10/16/20 04:18 Hospitalist ROS - Medication Medications: Active Medications Generic Name Dose Route Start Last Admin Trade Name Freq PRN Reason Stop Dose Admin Acetaminophen 650 mg 10/11/20 21:58 10/16/20 23:58 Acetaminophen 325 Mg Tab PO 650 mg Q4H PRN Administration Headache/Fever/Mild Pain (1-3) Albuterol/Ipratropium 3 ml 10/10/20 22:51 10/13/20 05:22 Ipratropium/Albuterol Sulfate 3 Ml Neb IPPB 3 ml [id number] PRN Administration SOB &/or Wheezing Albuterol/Ipratropium 3 ml 10/17/20 14:30 10/17/20 14:41 Ipratropium/Albuterol Sulfate 3 Ml Neb NEB 3 ml [id number] JOSE Administration Alprazolam 0.25 mg 10/17/20 10:51 10/17/20 12:10 Alprazolam 0.25 Mg Tab PO 0.25 mg QIDPRN PRN Administration Anxiety/Agitation Clonidine 0.1 mg 10/11/20 23:09 10/17/20 12:10 Clonidine 0.1 Mg Tab PO 0.1 mg Q4H PRN Administration SBP Greater Than 180 Enoxaparin Sodium 40 mg 10/11/20 09:00 10/17/20 09:26 Enoxaparin Sodium 40 Mg/0.4 Ml Syringe SC Not Given 0900 JOSE Hydralazine HCl 5 mg 10/10/20 22:55 10/13/20 04:43 Hydralazine 20 Mg/Ml Vial SLOW IVP 5 mg Q4H PRN Administration Hypertension Levofloxacin 500 mg 10/13/20 06:00 10/17/20 06:18 Levofloxacin 500 Mg Tab PO 10/18/20 06:01 500 mg 0600 JOSE Administration Lorazepam 0.5 mg 10/15/20 14:50 10/17/20 07:58 Lorazepam 0.5 Mg Tab PO 0.5 mg Q4H PRN Administration Anxiety Methylprednisolone Sodium Succinate 40 mg 10/13/20 09:00 10/17/20 07:57 Methylprednisolone Sod Succ 40 Mg Vial IVP 40 mg BID JOSE Administration Mometasone Furoate/Formoterol Fumar 2 puff 10/11/20 18:30 10/17/20 07:27 Mometasone 200 Mcg/Formoterol 5 Mcg 120 Puff Inhaler INH 2 puff BID-RT JOSE Administration Nifedipine 30 mg 10/17/20 09:00 10/17/20 09:44 Nifedipine Xl 30 Mg Tab PO 30 mg DAILY JOSE Administration Nitroglycerin 0.5 inch 10/12/20 06:00 10/17/20 15:03 Nitroglycerin 2% Ointment 1 Inch/1 Gm Packet TOP 0.5 inch Q8HR JOSE Administration Pantoprazole Sodium 40 mg 10/15/20 09:00 10/17/20 07:57 Pantoprazole 40 Mg Tab PO 40 mg DAILY JOSE Administration Sodium Chloride 10 ml 10/11/20 09:00 10/17/20 07:58 Flush - Normal Saline 10 Ml Syringe IVF 10 ml Q12HR JOSE Administration Sodium Chloride 10 ml 10/10/20 23:15 10/12/20 13:37 Flush - Normal Saline 10 Ml Syringe IVF 10 ml PRN PRN Administration Saline Flush Hospitalist Exam Vitals: Vital Signs (12 hours) Temp Pulse Resp BP Pulse Ox 10/17/20 14:43 81 18 99 10/17/20 14:41 78 15 98 10/17/20 11:45 97.5 F L 117 H 29 H 180/134 H 94 L 10/17/20 09:44 84 10/17/20 07:54 97.5 F L 85 H 176/77 H 98 10/17/20 04:24 98 Weight Admit Weight 108 lb 14.4 oz Weight 110 lb 12.8 oz General Appearance: ill appearing General - other findings: Cachectic and in severe respiratory distress Eye: anicteric sclera ENT: normocephalic atraumatic Heart: RRR, no murmur, no gallops Respiratory: tachypneic, wheezes Extremities: no edema Psychiatric: normal affect, normal behavior Hosp A/P (1) AAA (abdominal aortic aneurysm) Code(s): I71.4 - ABDOMINAL AORTIC ANEURYSM, WITHOUT RUPTURE Status: Acute (2) Anxiety Code(s): F41.9 - ANXIETY DISORDER, UNSPECIFIED Status: Acute (3) Atrial mass Code(s): I51.89 - OTHER ILL-DEFINED HEART DISEASES Status: Acute (4) COPD exacerbation Code(s): J44.1 - CHRONIC OBSTRUCTIVE PULMONARY DISEASE W (ACUTE) EXACERBATION Status: Acute (5) Esophageal dysphagia Code(s): R13.10 - DYSPHAGIA, UNSPECIFIED Status: Acute (6) Hypertension Code(s): I10 - ESSENTIAL (PRIMARY) HYPERTENSION Status: Acute (7) Lung mass Code(s): R91.8 - OTHER NONSPECIFIC ABNORMAL FINDING OF LUNG FIELD Status: Acute - Plan Assessment Patient is a 79-year-old female with a known history of COPD was admitted with a COPD exacerbation. Work-up during this admission revealed prolonged and an atrial mass. Respiratory status continued to decompensate. She was deemed a poor candidate for lung biopsy on 10/17. Acute hypoxemic respiratory failure Lung mass Atrial mass COPD exacerbation Underweight Elevated troponin Plan: Transfer to ICU for continuous BiPAP therapy She is deemed a poor candidate for lung biopsy due to severe COPD She is currently underweight with a BMI of 17 I will consult palliative medicine The plan is to optimize her respiratory status and and and decide on a long-term plan of care Continue standard therapy for COPD exacerbation Solu-Medrol, antibiotics and DuoNebs As needed Ativan is also on board
--- NOTE | 2020-10-17 17:10 | PDOC.CPN ---
- Subjective Date: 10/17/20 Time: 17:08 Interval history: Patient moved to CCU, on bi-pap, patient states that she can breath better since being placed on bipap. She was deemed a poor candidate for a lung biopsy - Review of Systems General: denies: fever/chills, weight/appetite/sleep changes, night sweats, fatigue Respiratory: denies: cough, congestion, shortness of breath, exercise intolerance Cardiovascular: denies: chest pain, palpitation, edema, paroxysmal nocturnal dyspnea, orthopnea Gastrointestinal: denies: nausea, vomiting, diarrhea, constipation, abd pain, GI bleeding Musculoskeletal: denies: pain, tenderness, stiffness, swelling, arthritis /arthralgias Neurological: denies: numbness, syncope, seizure, weakness - Objective Allergies/Adverse Reactions: Allergies Allergy/AdvReac Type Severity Reaction Status Date / Time Penicillins Allergy Rash Verified 10/11/20 02:22 Visit Medications: Current Medications Acetaminophen (Acetaminophen 325 Mg Tab) 650 mg PO Q4H PRN PRN Reason: Headache/Fever/Mild Pain (1-3) Last Admin: 10/16/20 23:58 Dose: 650 mg Documented by: Albuterol/Ipratropium (Ipratropium/Albuterol Sulfate 3 Ml Neb) 3 ml IPPB Q2HR- RT PRN PRN Reason: SOB &/or Wheezing Last Admin: 10/13/20 05:22 Dose: 3 ml Documented by: Albuterol/Ipratropium (Ipratropium/Albuterol Sulfate 3 Ml Neb) 3 ml NEB [id number] Last Admin: 10/17/20 14:41 Dose: 3 ml Documented by: Alprazolam (Alprazolam 0.25 Mg Tab) 0.25 mg PO QIDPRN PRN PRN Reason: Anxiety/Agitation Last Admin: 10/17/20 12:10 Dose: 0.25 mg Documented by: Clonidine (Clonidine 0.1 Mg Tab) 0.1 mg PO Q4H PRN PRN Reason: SBP Greater Than 180 Last Admin: 10/17/20 12:10 Dose: 0.1 mg Documented by: Enoxaparin Sodium (Enoxaparin Sodium 40 Mg/0.4 Ml Syringe) 40 mg SC 0900 JOSE Last Admin: 10/17/20 09:26 Dose: Not Given Documented by: Hydralazine HCl (Hydralazine 20 Mg/Ml Vial) 5 mg SLOW IVP Q4H PRN PRN Reason: Hypertension Last Admin: 10/13/20 04:43 Dose: 5 mg Documented by: Levofloxacin (Levofloxacin 500 Mg Tab) 500 mg PO 0600 [facility] Stop: 10/18/20 06:01 Last Admin: 10/17/20 06:18 Dose: 500 mg Documented by: Lorazepam (Lorazepam 0.5 Mg Tab) 0.5 mg PO Q4H PRN PRN Reason: Anxiety Last Admin: 10/17/20 07:58 Dose: 0.5 mg Documented by: Methylprednisolone Sodium Succinate (Methylprednisolone Sod Succ 40 Mg Vial) 40 mg IVP BID [facility] Last Admin: 10/17/20 07:57 Dose: 40 mg Documented by: Mometasone Furoate/Formoterol Fumar (Mometasone 200 Mcg/Formoterol 5 Mcg 120 Puff Inhaler) 2 puff INH BID-RT [facility] Last Admin: 10/17/20 07:27 Dose: 2 puff Documented by: Morphine Sulfate (Morphine 2 Mg/Ml Vial) 2 mg SLOW IVP Q4H PRN PRN Reason: Agitation Nifedipine (Nifedipine Xl 30 Mg Tab) 30 mg PO DAILY [facility] Last Admin: 10/17/20 09:44 Dose: 30 mg Documented by: Nitroglycerin (Nitroglycerin 2% Ointment 1 Inch/1 Gm Packet) 0.5 inch TOP Q8HR [facility] Last Admin: 10/17/20 15:03 Dose: 0.5 inch Documented by: Pantoprazole Sodium (Pantoprazole 40 Mg Tab) 40 mg PO DAILY [facility] Last Admin: 10/17/20 07:57 Dose: 40 mg Documented by: Sodium Chloride (Flush - Normal Saline 10 Ml Syringe) 10 ml IVF Q12HR [facility] Last Admin: 10/17/20 07:58 Dose: 10 ml Documented by: Sodium Chloride (Flush - Normal Saline 10 Ml Syringe) 10 ml IVF PRN PRN PRN Reason: Saline Flush Last Admin: 10/12/20 13:37 Dose: 10 ml Documented by: Vital Signs & Weight: Vital Signs Temp Pulse Resp BP Pulse Ox 10/17/20 16:00 100 10/17/20 14:43 81 18 99 10/17/20 14:41 78 15 98 10/17/20 11:45 97.5 F L 117 H 29 H 180/134 H 94 L 10/17/20 09:44 84 10/17/20 07:54 97.5 F L 85 H 176/77 H 98 Admit Weight 108 lb 14.4 oz Weight 110 lb 12.8 oz - Physical Exam General: cachectic Neck: no JVD/HJR, no bruit Cardiac: no murmur, regular rate Lungs: decreased breath sounds, oxygen Neuro: grossly intact Abdomen: active bowel sounds, soft Extremities: no cyanosis, no clubbing, no edema Skin: clear, brusing Musculoskeletal: no pain - Labs Result Diagrams: 10/16/20 04:18 10/16/20 04:18 Troponin/CKMB CK-MB (CK-2) 3.3 ng/mL (0-6.6) 10/10/20 17:53 Troponin I 0.049 ng/mL (< 0.028) H 10/10/20 23:50 - EKG Interpretation EKG Method: Telemetry EKG: sinus rhythm - Assessment/Plan Assessment/Plan: 1. Right atrial mass: Cardiac MRI could be done at other facility. Deemed a poor candidate for a lung biopsy 2. COPD: treated by primary care services, now on bi-pap 3. Lung mass 4. Peripheral vascular disease: she has decreased pulses to her bilateral lower extremities, she states that she has delt with pain, numbness, tingling, and discoloration to her BLE for years. She has a STEAM BOX TENDER to her right SFA with a 4x 40 mm [place] Balloon catheter by Dr. Romo in 01/2013. 5. History of CVA 6. Dysphagia Continue current treatment plan, symptomatic treatment.
[2020-10-18] MEDS: Nitroglycerin 2% Ointment 1 INCH/1 GM Packet TOP SCH ×3 (05:41→20:20)
[2020-10-18] MEDS: Mometasone 200 MCG/Formoterol 5 MCG 120 PUFF INHALER INH SCH ×2 (06:31→18:45)
[2020-10-18] MEDS ORDERED: Lidocaine 4% PF 5 ML AMP NEB SCH (09:00)
[2020-10-18] MEDS: NIFEdipine XL 30 MG TAB PO SCH (09:03)
[2020-10-18] MEDS: methylPREDNISolone Sod Succ 40 MG VIAL IVP SCH ×2 (09:04→20:19)
[2020-10-18] MEDS: Enoxaparin Sodium 40 MG/0.4 ML SYRINGE SC SCH (09:04)
--- NOTE | 2020-10-18 09:33 | PRG ---
DATE OF SERVICE: 10/18/2020 SUBJECTIVE: This morning, she is much better. No longer anxious. OBJECTIVE: VITAL SIGNS: Pulse 80, sats 100% on 3 L off the BiPAP, respiratory rate 18, blood pressure 130/80. CHEST: Decreased breath sounds. No wheezing. CARDIAC: Normal S1. ABDOMEN: No masses. ASSESSMENT: Respiratory failure, chronic obstructive pulmonary disease, left upper lung mass. PLAN: 1. The patient apparently still wants a biopsy. We will call anesthesia to talk to the patient under fluoroscopy. We will try and get a sample from the left upper lung. 2. Otherwise, we are going to keep in the ICU today. Low-flow O2 neb treatments, steroids. 3. Supportive care. One-half hour of critical time. Job ID: [id number]
--- NOTE | 2020-10-18 09:45 | RAD ---
Portable chest: HISTORY: Lung mass. COMPARISON: 10/12/2020 FINDINGS:New opacification of the left lung base consistent with effusion and left basilar consolidat ion/atelectasis. Small right effusion unchanged. Mass density in the left apical region unchanged. Vascular markings within normal range and stable. IMPRESSION:New opacification left lung base
[2020-10-18] MEDS: Cefepime 1 GM in Sodium Chloride 0.9% 100 ML IVPB SCH ×2 (09:47→20:19)
[2020-10-18] MEDS: Sodium Chloride 0.9% 1,000 ML IV SCH (09:57)
[2020-10-18] MEDS: ALPRAZolam 0.25 MG TAB PO PRN ×3 (11:22→23:21)
--- NOTE | 2020-10-18 13:02 | PDOC.FMACP ---
Advance Care Planning - Problem (1) Palliative care encounter Status: Acute Code(s): Z51.5 - ENCOUNTER FOR PALLIATIVE CARE (2) AAA (abdominal aortic aneurysm) Status: Acute Code(s): I71.4 - ABDOMINAL AORTIC ANEURYSM, WITHOUT RUPTURE (3) Anxiety Status: Acute Code(s): F41.9 - ANXIETY DISORDER, UNSPECIFIED (4) Atrial mass Status: Acute Code(s): I51.89 - OTHER ILL-DEFINED HEART DISEASES (5) COPD exacerbation Status: Acute Code(s): J44.1 - CHRONIC OBSTRUCTIVE PULMONARY DISEASE W (ACUTE) EXACERBATION (6) Lung mass Status: Acute Code(s): R91.8 - OTHER NONSPECIFIC ABNORMAL FINDING OF LUNG FIELD - Note Participants: patient, family, palliative care Summary: Palliative care revisited Advanced Care Planning with the patient. The diagnosis, prognosis and goals of care were discussed. Appropriate forms and documentation to accomplish the goals of care were discussed. All questions were answered. Daughter and patient sister at bedside. Secondary to poor functional status, will not pursue a biopsy of mass. Patient expresses a desire to transition to hospice. Family in agreement. Discussed family to consider additional care in home setting secondary to decline. CM notified, secured choice letter for [facility]. Communicated with Dr Lucio. Silviano Barger registrar will facilitate completion of OOHDNAR for physician signature. Palliative care answered questions, provided emotional support and therapeutic listening. Time Spent (mins): 45
--- NOTE | 2020-10-18 13:50 | PDOC.CPN ---
- Subjective Date: 10/18/20 Time: 13:20 Interval history: Ms. Ji is sitting up in her bed, her family is at bedside, she states she is feeling okay today, she just received a breathing treatment. She denies any chest pain, she complains of continued shortness of breath - Review of Systems General: reports: fatigue. denies: fever/chills, weight/appetite/sleep changes, night sweats Respiratory: reports: cough, shortness of breath Cardiovascular: denies: chest pain, palpitation, edema, paroxysmal nocturnal dyspnea, orthopnea Gastrointestinal: denies: nausea, vomiting, diarrhea, constipation, abd pain, GI bleeding Musculoskeletal: denies: pain, tenderness, stiffness, swelling, arthritis/arthralgias Neurological: denies: numbness, syncope, seizure, weakness - Objective Allergies/Adverse Reactions: Allergies Allergy/AdvReac Type Severity Reaction Status Date / Time Penicillins Allergy Rash Verified 10/11/20 02:22 Visit Medications: Current Medications Acetaminophen (Acetaminophen 325 Mg Tab) 650 mg PO Q4H PRN PRN Reason: Headache/Fever/Mild Pain (1-3) Last Admin: 10/16/20 23:58 Dose: 650 mg Documented by: Albuterol/Ipratropium (Ipratropium/Albuterol Sulfate 3 Ml Neb) 3 ml IPPB Q2HR- RT PRN PRN Reason: SOB &/or Wheezing Last Admin: 10/13/20 05:22 Dose: 3 ml Documented by: Albuterol/Ipratropium (Ipratropium/Albuterol Sulfate 3 Ml Neb) 3 ml NEB [id number] JOSE Last Admin: 10/18/20 10:37 Dose: 3 ml Documented by: Albuterol/Ipratropium (Ipratropium/Albuterol Sulfate 3 Ml Neb) 3 ml NEB WILLCALL JOSE Alprazolam (Alprazolam 0.25 Mg Tab) 0.25 mg PO QIDPRN PRN PRN Reason: Anxiety/Agitation Last Admin: 10/18/20 11:22 Dose: 0.25 mg Documented by: Clonidine (Clonidine 0.1 Mg Tab) 0.1 mg PO Q4H PRN PRN Reason: SBP Greater Than 180 Last Admin: 10/17/20 12:10 Dose: 0.1 mg Documented by: Enoxaparin Sodium (Enoxaparin Sodium 40 Mg/0.4 Ml Syringe) 40 mg SC 0900 [facility] Last Admin: 10/18/20 09:04 Dose: 40 mg Documented by: Hydralazine HCl (Hydralazine 20 Mg/Ml Vial) 5 mg SLOW IVP Q4H PRN PRN Reason: Hypertension Last Admin: 10/13/20 04:43 Dose: 5 mg Documented by: Cefepime HCl 1 gm/ Sodium (Chloride) 100 mls @ 200 mls/hr IVPB Q12HR [facility] Last Admin: 10/18/20 09:47 Dose: 100 mls Documented by: Sodium Chloride (Normal Saline 0.9%) 1,000 mls @ 50 mls/hr IV .Q20H [facility] Last Admin: 10/18/20 09:57 Dose: 1,000 mls Documented by: Lidocaine HCl (Lidocaine 4% Pf 5 Ml Amp) 5 ml NEB WILLCALL [facility] Methylprednisolone Sodium Succinate (Methylprednisolone Sod Succ 40 Mg Vial) 40 mg IVP BID [facility] Last Admin: 10/18/20 09:04 Dose: 40 mg Documented by: Mometasone Furoate/Formoterol Fumar (Mometasone 200 Mcg/Formoterol 5 Mcg 120 Puff Inhaler) 2 puff INH BID-RT [facility] Last Admin: 10/18/20 06:31 Dose: 2 puff Documented by: Morphine Sulfate (Morphine 2 Mg/Ml Vial) 2 mg SLOW IVP Q4H PRN PRN Reason: Agitation Nifedipine (Nifedipine Xl 30 Mg Tab) 30 mg PO DAILY [facility] Last Admin: 10/18/20 09:03 Dose: 30 mg Documented by: Nitroglycerin (Nitroglycerin 2% Ointment 1 Inch/1 Gm Packet) 0.5 inch TOP Q8HR [facility] Last Admin: 10/18/20 05:41 Dose: 0.5 inch Documented by: Pantoprazole Sodium (Pantoprazole 40 Mg Tab) 40 mg PO DAILY [facility] Last Admin: 10/18/20 09:04 Dose: 40 mg Documented by: Sodium Chloride (Flush - Normal Saline 10 Ml Syringe) 10 ml IVF Q12HR [facility] Last Admin: 10/18/20 09:58 Dose: 10 ml Documented by: Sodium Chloride (Flush - Normal Saline 10 Ml Syringe) 10 ml IVF PRN PRN PRN Reason: Saline Flush Last Admin: 10/12/20 13:37 Dose: 10 ml Documented by: Vital Signs & Weight: Vital Signs Temp Pulse Resp BP Pulse Ox 10/18/20 12:53 99.3 F 10/18/20 10:40 100 10/18/20 10:37 85 18 99 10/18/20 09:03 80 126/65 10/18/20 08:00 99 10/18/20 07:00 98.6 F 10/18/20 06:31 100 10/18/20 06:11 80 18 100 10/18/20 06:05 80 17 100 10/18/20 03:00 97.3 F L 10/18/20 02:34 79 17 100 Admit Weight 108 lb 14.4 oz Weight 110 lb 12.516 oz - Physical Exam General: cachectic, other (mild distress noted) HEENT: mucus membranes moist Neck: no bruit Cardiac: no murmur, regular rate, S1/S2, other (distant heart sounds) Lungs: decreased breath sounds, wheezes, scattered rhonchi, oxygen (she is off of bi-pap for now, she is wearing oxygen via nasal cannula) Neuro: grossly intact, motor function intact Abdomen: active bowel sounds, soft, non-tender Extremities: no edema, other: (decreased pulses to bilateral lower extremities, chronic) Skin: brusing, other (thin, fragile skin, she has scattered bruising to her bilateral arms) Musculoskeletal: no pain - Labs Result Diagrams: 10/16/20 04:18 10/16/20 04:18 Troponin/CKMB CK-MB (CK-2) 3.3 ng/mL (0-6.6) 10/10/20 17:53 Troponin I 0.049 ng/mL (< 0.028) H 10/10/20 23:50 - EKG Interpretation EKG Method: Telemetry EKG: sinus rhythm - Assessment/Plan Assessment/Plan: 1. Right atrial mass: Cardiac MRI could be done at other facility. Deemed a poor candidate for a lung biopsy 2. COPD: treated by primary care services, currently on oxygen via nasal cannula, remains in CCU, did have to go on bi-pap this morning for a short period 3. Lung mass: deemed poor candidate for a lung biopsy by pulmonology & oncology 4. Peripheral vascular disease: she has decreased pulses to her bilateral lower extremities, she states that she has delt with pain, numbness, tingling, and discoloration to her BLE for years. She has a TRAFFIC LAW ATTORNEY to her right SFA with a 4x 40 mm [place] Balloon catheter by Dr. Romo in 01/2013. 5. History of CVA 6. Dysphagia The patient is not a candidate for a lung biopsy. She has seen Palliative care. The patient would like to go home. She is concerned about getting care at home upon discharge. I believe the plan is for patient to go home with Hospice care. Hospice consult pending. Continue symptomatic treatment pt. seen and eval. by me. I agree with the a/P by the EDUCATIONAL DIRECTOR She did complain of being able to swallow solid food. Poor prognosis. Not a candidate for biopsy. If she improves then a cardiac MRI may be better at seeing the right atrial mass and offering a diagnosis of mass versus eustacian valve remnant. I will sign off. I would be happy to see her as an outpt. if she improves. jaz
--- NOTE | 2020-10-18 14:31 | PDOC.MOPN ---
Interval History: patient seen at bedside with daughter present. breathing improved. no pain. - Vital Signs Vital Signs: Vital Signs (12 hours) Temp Pulse Resp BP Pulse Ox 10/18/20 12:53 99.3 F 10/18/20 10:40 100 10/18/20 10:37 85 18 99 10/18/20 09:03 80 126/65 10/18/20 08:00 99 10/18/20 07:00 98.6 F 10/18/20 06:31 100 10/18/20 06:11 80 18 100 10/18/20 06:05 80 17 100 10/18/20 03:00 97.3 F L 10/18/20 02:34 79 17 100 Weight Admit Weight 108 lb 14.4 oz Weight 110 lb 12.516 oz Most Recent Monitor Data Heart Rate from ECG 87 NIBP 134/67 NIBP BP-Mean 89 Respiration from ECG 21 SpO2 100 - Physical Exam General: Alert, Oriented x3, No acute distress Lungs: Other Cardiovascular: Regular rate Abdomen: Normal bowel sounds Neurological: Normal speech Psych/Mental Status: Mental status NL - Labs Result Diagrams: 10/16/20 04:18 10/16/20 04:18 Status: lab reviewed by me A/P - Problem (1) COPD exacerbation Current Visit: Yes Code(s): J44.1 - CHRONIC OBSTRUCTIVE PULMONARY DISEASE W (ACUTE) EXACERBATION Status: Acute (2) Lung mass Current Visit: Yes Code(s): R91.8 - OTHER NONSPECIFIC ABNORMAL FINDING OF LUNG FIELD Status: Acute - Plan Plan: 1. we discussed the high risk associated with biopsy. 2. she has decided to not have biopsy nor treatment. 3. she wishes to go home on hospice, [facility] hospice at bedside.
--- NOTE | 2020-10-18 17:45 | PDOC.HOSPP ---
- Subjective Subjective: Patient was transferred to ICU overnight due to decompensate respiratory status. Initially plan was to have lung biopsy done. However, patient later decided against further investigation, and decided to go home with hospice. - Objective Vital Signs & Weight: Vital Signs (12 hours) Temp Pulse Resp BP Pulse Ox 10/18/20 14:53 88 21 H 100 10/18/20 12:53 99.3 F 10/18/20 10:40 100 10/18/20 10:37 85 18 99 10/18/20 09:03 80 126/65 10/18/20 08:00 99 10/18/20 07:00 98.6 F 10/18/20 06:31 100 10/18/20 06:11 80 18 100 10/18/20 06:05 80 17 100 Weight Admit Weight 108 lb 14.4 oz Weight 110 lb 12.516 oz Most Recent Monitor Data Heart Rate from ECG 96 NIBP 148/117 NIBP BP-Mean 127 Respiration from ECG 21 SpO2 100 I&O: 10/17/20 10/18/20 10/19/20 06:59 06:59 06:59 Intake Total 1760 0 485 Output Total 603 50 550 Balance 1157 -50 -65 Result Diagrams: 10/16/20 04:18 10/16/20 04:18 Radiology Reviewed by me: Yes EKG Reviewed by me: Yes Hospitalist ROS - Medication Medications: Active Medications Generic Name Dose Route Start Last Admin Trade Name Freq PRN Reason Stop Dose Admin Acetaminophen 650 mg 10/11/20 21:58 10/16/20 23:58 Acetaminophen 325 Mg Tab PO 650 mg Q4H PRN Administration Headache/Fever/Mild Pain (1-3) Albuterol/Ipratropium 3 ml 10/10/20 22:51 10/13/20 05:22 Ipratropium/Albuterol Sulfate 3 Ml Neb IPPB 3 ml [id number] PRN Administration SOB &/or Wheezing Albuterol/Ipratropium 3 ml 10/17/20 14:30 10/18/20 14:53 Ipratropium/Albuterol Sulfate 3 Ml Neb NEB 3 ml [id number] JOSE Administration Alprazolam 0.25 mg 10/17/20 10:51 10/18/20 11:22 Alprazolam 0.25 Mg Tab PO 0.25 mg QIDPRN PRN Administration Anxiety/Agitation Clonidine 0.1 mg 10/11/20 23:09 10/17/20 12:10 Clonidine 0.1 Mg Tab PO 0.1 mg Q4H PRN Administration SBP Greater Than 180 Enoxaparin Sodium 40 mg 10/11/20 09:00 10/18/20 09:04 Enoxaparin Sodium 40 Mg/0.4 Ml Syringe SC 40 mg 0900 JOSE Administration Hydralazine HCl 5 mg 10/10/20 22:55 10/13/20 04:43 Hydralazine 20 Mg/Ml Vial SLOW IVP 5 mg Q4H PRN Administration Hypertension Cefepime HCl 1 gm/ Sodium 100 mls @ 200 mls/hr 10/18/20 09:00 10/18/20 09:47 Chloride IVPB 100 mls Q12HR JOSE Administration Sodium Chloride 1,000 mls @ 50 mls/hr 10/18/20 09:00 10/18/20 09:57 Normal Saline 0.9% IV 1,000 mls .Q20H JOSE Administration Methylprednisolone Sodium Succinate 40 mg 10/13/20 09:00 10/18/20 09:04 Methylprednisolone Sod Succ 40 Mg Vial IVP 40 mg BID JOSE Administration Mometasone Furoate/Formoterol Fumar 2 puff 10/11/20 18:30 10/18/20 06:31 Mometasone 200 Mcg/Formoterol 5 Mcg 120 Puff Inhaler INH 2 puff BID-RT JOSE Administration Nifedipine 30 mg 10/17/20 09:00 10/18/20 09:03 Nifedipine Xl 30 Mg Tab PO 30 mg DAILY JOSE Administration Nitroglycerin 0.5 inch 10/12/20 06:00 10/18/20 14:50 Nitroglycerin 2% Ointment 1 Inch/1 Gm Packet TOP 0.5 inch Q8HR JOSE Administration Pantoprazole Sodium 40 mg 10/15/20 09:00 10/18/20 09:04 Pantoprazole 40 Mg Tab PO 40 mg DAILY JOSE Administration Sodium Chloride 10 ml 10/11/20 09:00 10/18/20 09:58 Flush - Normal Saline 10 Ml Syringe IVF 10 ml Q12HR JOSE Administration Sodium Chloride 10 ml 10/10/20 23:15 10/12/20 13:37 Flush - Normal Saline 10 Ml Syringe IVF 10 ml PRN PRN Administration Saline Flush Hospitalist Exam Vitals: Vital Signs (12 hours) Temp Pulse Resp BP Pulse Ox 10/18/20 14:53 88 21 H 100 10/18/20 12:53 99.3 F 10/18/20 10:40 100 10/18/20 10:37 85 18 99 10/18/20 09:03 80 126/65 10/18/20 08:00 99 10/18/20 07:00 98.6 F 10/18/20 06:31 100 10/18/20 06:11 80 18 100 10/18/20 06:05 80 17 100 Weight Admit Weight 108 lb 14.4 oz Weight 110 lb 12.516 oz Most Recent Monitor Data Heart Rate from ECG 96 NIBP 148/117 NIBP BP-Mean 127 Respiration from ECG 21 SpO2 100 General Appearance: NAD Eye: PERRL ENT: normocephalic atraumatic Neck: supple Heart: RRR Respiratory: CTAB Gastrointestinal: soft Extremities: no cyanosis Skin: normal turgor Neurological: cranial nerve grossly intact Musculoskeletal: normal tone Psychiatric: normal affect, normal behavior, A&O x 3 Hosp A/P (1) AAA (abdominal aortic aneurysm) Code(s): I71.4 - ABDOMINAL AORTIC ANEURYSM, WITHOUT RUPTURE Status: Acute (2) Anxiety Code(s): F41.9 - ANXIETY DISORDER, UNSPECIFIED Status: Acute (3) Atrial mass Code(s): I51.89 - OTHER ILL-DEFINED HEART DISEASES Status: Acute (4) COPD exacerbation Code(s): J44.1 - CHRONIC OBSTRUCTIVE PULMONARY DISEASE W (ACUTE) EXACERBATION Status: Acute (5) Esophageal dysphagia Code(s): R13.10 - DYSPHAGIA, UNSPECIFIED Status: Acute (6) Hypertension Code(s): I10 - ESSENTIAL (PRIMARY) HYPERTENSION Status: Acute (7) Lung mass Code(s): R91.8 - OTHER NONSPECIFIC ABNORMAL FINDING OF LUNG FIELD Status: Acute (8) Thoracic aortic aneurysm (TAA) Code(s): I71.2 - THORACIC AORTIC ANEURYSM, WITHOUT RUPTURE Status: Acute (9) Dehydration Code(s): E86.0 - DEHYDRATION Status: Acute (10) Fall at home Code(s): W19.XXXA - UNSPECIFIED FALL, INITIAL ENCOUNTER; Y92.099 - UNSP PLACE IN OTH NON-INSTITUTIONAL RESIDENCE PLACE Status: Acute (11) Rhabdomyolysis Code(s): M62.82 - RHABDOMYOLYSIS Status: Acute (12) UTI (urinary tract infection) due to Enterococcus Code(s): N39.0 - URINARY TRACT INFECTION, SITE NOT SPECIFIED; B95.2 - ENTEROCOCCUS THE CAUSE OF DISEASES CLASSIFIED ELSEWHERE Status: Acute - Plan Patient is a 79-year-old female with a known history of COPD was admitted with a COPD exacerbation. Work-up during this admission revealed lung and an atrial mass. Respiratory status continued to decompensated. She was deemed a poor candidate for lung biopsy on 10/17. Acute hypoxemic respiratory failure Lung mass Atrial mass COPD exacerbation Underweight Elevated troponin Plan: Pt decided against further investigation and would like go home on hospice. Continue supportive cares and standard treatments for COPD exac. D/C home with hospice when things arranged. d/w Palliative team and family members at bedside.
[2020-10-18] MEDS: Morphine 2 MG/ML VIAL SLOW IVP PRN (23:21)
[2020-10-19] MEDS: Morphine 2 MG/ML VIAL SLOW IVP PRN ×3 (02:55→14:35)
[2020-10-19] MEDS: Sodium Chloride 0.9% 1,000 ML IV SCH (05:18)
[2020-10-19] MEDS: Mometasone 200 MCG/Formoterol 5 MCG 120 PUFF INHALER INH SCH ×2 (06:15→16:45)
--- NOTE | 2020-10-19 08:51 | PRG ---
DATE OF SERVICE: 10/19/2020 SUBJECTIVE: This is a 79-year-old female. This morning, she is better, wide-awake in mild distress. OBJECTIVE: VITAL SIGNS: Temperature is 98. Saturation 100% on 2 L, pulse 80, blood pressure . CHEST: Decreased breath sounds. No wheezing. CARDIAC: Normal . ABDOMEN: No masses. ASSESSMENT: End-stage chronic obstructive pulmonary disease, left upper lung mass, left lower lung atelectasis. PLAN: As per the patient's as well as the patient's sister and the daughter, a lengthy discussion yesterday, they do not want a bronchoscopy. They were in agreement to get Hospice to see the patient. This is being arranged. We are in the process of transferring her out of the ICU to a medical bed. Otherwise, PT, supportive care, nutrition. We will follow. Job ID: [id number]
[2020-10-19] MEDS: methylPREDNISolone Sod Succ 40 MG VIAL IVP SCH ×2 (09:05→20:48)
[2020-10-19] MEDS: NIFEdipine XL 30 MG TAB PO SCH (09:05)
[2020-10-19] MEDS: Cefepime 1 GM in Sodium Chloride 0.9% 100 ML IVPB SCH ×2 (09:05→20:48)
[2020-10-19] MEDS: Enoxaparin Sodium 40 MG/0.4 ML SYRINGE SC SCH (09:05)
--- NOTE | 2020-10-19 13:18 | PDOC.HOSPP ---
- Subjective Encounter Date: 10/19/20 Encounter Time: 13:16 Subjective: Ms. Ji was seen today in follow-up of lung mass. She says today she feels better. She denies having any pain or discomfort. - Objective Vital Signs & Weight: Vital Signs (12 hours) Temp Pulse Resp Pulse Ox 10/19/20 12:00 98.2 F 10/19/20 10:27 95 10/19/20 10:24 88 16 95 10/19/20 09:05 79 10/19/20 08:00 98.0 F 95 10/19/20 06:15 100 10/19/20 06:08 79 15 100 10/19/20 04:00 98.2 F 10/19/20 02:36 85 21 H 100 Weight Admit Weight 108 lb 14.4 oz Weight 112 lb 10.499 oz Most Recent Monitor Data Heart Rate from ECG 93 NIBP 111/93 NIBP BP-Mean 99 Respiration from ECG 19 SpO2 95 I&O: 10/18/20 10/19/20 10/20/20 06:59 06:59 06:59 Intake Total 0 970 540 Output Total 50 585 Balance -50 385 540 Result Diagrams: 10/16/20 04:18 10/16/20 04:18 Hospitalist ROS - Medication Medications: Active Medications Generic Name Dose Route Start Last Admin Trade Name Freq PRN Reason Stop Dose Admin Acetaminophen 650 mg 10/11/20 21:58 10/16/20 23:58 Acetaminophen 325 Mg Tab PO 650 mg Q4H PRN Administration Headache/Fever/Mild Pain (1-3) Albuterol/Ipratropium 3 ml 10/10/20 22:51 10/13/20 05:22 Ipratropium/Albuterol Sulfate 3 Ml Neb IPPB 3 ml [id number] PRN Administration SOB &/or Wheezing Albuterol/Ipratropium 3 ml 10/17/20 14:30 10/19/20 10:24 Ipratropium/Albuterol Sulfate 3 Ml Neb NEB 3 ml [id number] JOSE Administration Alprazolam 0.25 mg 10/17/20 10:51 10/18/20 23:21 Alprazolam 0.25 Mg Tab PO 0.25 mg QIDPRN PRN Administration Anxiety/Agitation Clonidine 0.1 mg 10/11/20 23:09 10/17/20 12:10 Clonidine 0.1 Mg Tab PO 0.1 mg Q4H PRN Administration SBP Greater Than 180 Enoxaparin Sodium 40 mg 10/11/20 09:00 10/19/20 09:05 Enoxaparin Sodium 40 Mg/0.4 Ml Syringe SC 40 mg 0900 JOSE Administration Hydralazine HCl 5 mg 10/10/20 22:55 10/13/20 04:43 Hydralazine 20 Mg/Ml Vial SLOW IVP 5 mg Q4H PRN Administration Hypertension Cefepime HCl 1 gm/ Sodium 100 mls @ 200 mls/hr 10/18/20 09:00 10/19/20 09:05 Chloride IVPB 100 mls Q12HR JOSE Administration Methylprednisolone Sodium Succinate 40 mg 10/13/20 09:00 10/19/20 09:05 Methylprednisolone Sod Succ 40 Mg Vial IVP 40 mg BID JOSE Administration Mometasone Furoate/Formoterol Fumar 2 puff 10/11/20 18:30 10/19/20 06:15 Mometasone 200 Mcg/Formoterol 5 Mcg 120 Puff Inhaler INH 2 puff BID-RT JOSE Administration Morphine Sulfate 2 mg 10/17/20 16:00 10/19/20 09:06 Morphine 2 Mg/Ml Vial SLOW IVP 2 mg Q4H PRN Administration Agitation Nifedipine 30 mg 10/17/20 09:00 10/19/20 09:05 Nifedipine Xl 30 Mg Tab PO 30 mg DAILY JOSE Administration Nitroglycerin 0.5 inch 10/12/20 06:00 10/18/20 20:20 Nitroglycerin 2% Ointment 1 Inch/1 Gm Packet TOP 0.5 inch Q8HR JOSE Administration Pantoprazole Sodium 40 mg 10/15/20 09:00 10/19/20 09:07 Pantoprazole 40 Mg Tab PO 40 mg DAILY JOSE Administration Sodium Chloride 10 ml 10/11/20 09:00 10/19/20 09:07 Flush - Normal Saline 10 Ml Syringe IVF 10 ml Q12HR JOSE Administration Sodium Chloride 10 ml 10/10/20 23:15 10/12/20 13:37 Flush - Normal Saline 10 Ml Syringe IVF 10 ml PRN PRN Administration Saline Flush Hospitalist Exam Vitals: Vital Signs (12 hours) Temp Pulse Resp Pulse Ox 10/19/20 12:00 98.2 F 10/19/20 10:27 95 10/19/20 10:24 88 16 95 10/19/20 09:05 79 10/19/20 08:00 98.0 F 95 10/19/20 06:15 100 10/19/20 06:08 79 15 100 10/19/20 04:00 98.2 F 10/19/20 02:36 85 21 H 100 Weight Admit Weight 108 lb 14.4 oz Weight 112 lb 10.499 oz Most Recent Monitor Data Heart Rate from ECG 93 NIBP 111/93 NIBP BP-Mean 99 Respiration from ECG 19 SpO2 95 General Appearance: NAD, ill appearing General - other findings: frail Eye: PERRL, anicteric sclera Heart: RRR, no murmur, no gallops, no rubs, normal peripheral pulses Respiratory: rales (at the bases, and some rhonchi) Gastrointestinal: soft, non-tender, non-distended, normal bowel sounds, no palp able masses Extremities: no cyanosis, 1+ LE edema Hosp A/P (1) Lung mass Code(s): R91.8 - OTHER NONSPECIFIC ABNORMAL FINDING OF LUNG FIELD Status: Acute (2) Atrial mass Code(s): I51.89 - OTHER ILL-DEFINED HEART DISEASES Status: Acute (3) COPD exacerbation Code(s): J44.1 - CHRONIC OBSTRUCTIVE PULMONARY DISEASE W (ACUTE) EXACERBATION Status: Acute (4) Esophageal dysphagia Code(s): R13.10 - DYSPHAGIA, UNSPECIFIED Status: Acute (5) Hypertension Code(s): I10 - ESSENTIAL (PRIMARY) HYPERTENSION Status: Acute - Plan * Lung Mass- the patient has decided against Bipopsy, and further aggressive work-up * The plan is for Hospice * HTN- blood pressure is stable * COPD- continue IV Solumedrol, and Duonebs, and Dulera and empiric antibiotics * Anticipate home tomorrow
[2020-10-19] MEDS: ALPRAZolam 0.25 MG TAB PO PRN (14:34)
[2020-10-19] MEDS: Nitroglycerin 2% Ointment 1 INCH/1 GM Packet TOP SCH ×3 (14:34→21:28)
[2020-10-20] MEDS: Nitroglycerin 2% Ointment 1 INCH/1 GM Packet TOP SCH ×2 (05:29→14:50)
[2020-10-20] MEDS: Mometasone 200 MCG/Formoterol 5 MCG 120 PUFF INHALER INH SCH (06:14)
[2020-10-20] MEDS: NIFEdipine XL 30 MG TAB PO SCH (08:19)
[2020-10-20] MEDS: Enoxaparin Sodium 40 MG/0.4 ML SYRINGE SC SCH (08:20)
[2020-10-20] MEDS: methylPREDNISolone Sod Succ 40 MG VIAL IVP SCH (08:21)
[2020-10-20] MEDS: Cefepime 1 GM in Sodium Chloride 0.9% 100 ML IVPB SCH (08:21)
[2020-10-20 08:22] VITALS: BP 123/68
--- NOTE | 2020-10-20 08:55 | PRG ---
DATE OF SERVICE: 10/20/2020 SUBJECTIVE: This morning, awake, alert, responsive, still having difficulty breathing. OBJECTIVE: VITAL SIGNS: With saturations are 97% on 2 L, pulse 90, blood pressure 120/68, and respirations 20. CHEST: Decreased breath sounds, prolonged expiration. CARDIAC: Normal S1 and S2. No gallops. ABDOMEN: No masses. ASSESSMENT AND PLAN: End-stage chronic obstructive pulmonary disease, respiratory failure. Hospice is involved in the patient's care. I am going to switch her over to p.o. medication in the anticipation that she may be discharged home. Job ID: [id number]
[2020-10-20] MEDS ORDERED: Cefdinir 300 MG CAP PO SCH (09:00)
--- NOTE | 2020-10-20 11:02 | PDOC.HOSPP ---
- Subjective Encounter Date: 10/20/20 Encounter Time: 11:01 Subjective: Ms. Ji was seen today in follow-up of respiratory failure due to COPD, and Lung mass. She says she feels ok. She just finished a neb treatment. - Objective Vital Signs & Weight: Vital Signs (12 hours) Temp Pulse Resp BP Pulse Ox 10/20/20 10:41 84 16 100 10/20/20 08:19 90 123/68 10/20/20 08:00 98.6 F 97 10/20/20 06:14 100 10/20/20 06:13 80 23 H 100 10/20/20 04:00 98.0 F 10/20/20 02:19 84 18 100 Weight Admit Weight 108 lb 14.4 oz Weight 112 lb 3.445 oz Most Recent Monitor Data Heart Rate from ECG 85 NIBP 137/75 NIBP BP-Mean 95 Respiration from ECG 17 SpO2 100 I&O: 10/19/20 10/20/20 10/21/20 06:59 06:59 06:59 Intake Total 970 1480 105 Output Total 585 1000 Balance 385 480 105 Result Diagrams: 10/16/20 04:18 10/16/20 04:18 Hospitalist ROS - Medication Medications: Active Medications Generic Name Dose Route Start Last Admin Trade Name Freq PRN Reason Stop Dose Admin Acetaminophen 650 mg 10/11/20 21:58 10/16/20 23:58 Acetaminophen 325 Mg Tab PO 650 mg Q4H PRN Administration Headache/Fever/Mild Pain (1-3) Albuterol/Ipratropium 3 ml 10/10/20 22:51 10/13/20 05:22 Ipratropium/Albuterol Sulfate 3 Ml Neb IPPB 3 ml [id number] PRN Administration SOB &/or Wheezing Albuterol/Ipratropium 3 ml 10/17/20 14:30 10/20/20 10:41 Ipratropium/Albuterol Sulfate 3 Ml Neb NEB 3 ml [id number] JOSE Administration Alprazolam 0.25 mg 10/17/20 10:51 10/19/20 14:34 Alprazolam 0.25 Mg Tab PO 0.25 mg QIDPRN PRN Administration Anxiety/Agitation Cefdinir 300 mg 10/20/20 09:00 10/20/20 09:26 Cefdinir 300 Mg Cap PO 03/09/21 09:01 300 mg BID JOSE Administration Clonidine 0.1 mg 10/11/20 23:09 10/17/20 12:10 Clonidine 0.1 Mg Tab PO 0.1 mg Q4H PRN Administration SBP Greater Than 180 Enoxaparin Sodium 40 mg 10/11/20 09:00 10/20/20 08:20 Enoxaparin Sodium 40 Mg/0.4 Ml Syringe SC 40 mg 0900 JSOE Administration Hydralazine HCl 5 mg 10/10/20 22:55 10/13/20 04:43 Hydralazine 20 Mg/Ml Vial SLOW IVP 5 mg Q4H PRN Administration Hypertension Mometasone Furoate/Formoterol Fumar 2 puff 10/11/20 18:30 10/20/20 06:14 Mometasone 200 Mcg/Formoterol 5 Mcg 120 Puff Inhaler INH 2 puff BID-RT JOSE Administration Morphine Sulfate 2 mg 10/17/20 16:00 10/19/20 14:35 Morphine 2 Mg/Ml Vial SLOW IVP 2 mg Q4H PRN Administration Agitation Nifedipine 30 mg 10/17/20 09:00 10/20/20 08:19 Nifedipine Xl 30 Mg Tab PO 30 mg DAILY JOSE Administration Nitroglycerin 0.5 inch 10/12/20 06:00 10/20/20 05:29 Nitroglycerin 2% Ointment 1 Inch/1 Gm Packet TOP 0.5 inch Q8HR JOSE Administration Pantoprazole Sodium 40 mg 10/15/20 09:00 10/20/20 08:19 Pantoprazole 40 Mg Tab PO 40 mg DAILY JOSE Administration Sodium Chloride 10 ml 10/11/20 09:00 10/20/20 08:20 Flush - Normal Saline 10 Ml Syringe IVF 10 ml Q12HR JOSE Administration Sodium Chloride 10 ml 10/10/20 23:15 10/12/20 13:37 Flush - Normal Saline 10 Ml Syringe IVF 10 ml PRN PRN Administration Saline Flush Hospitalist Exam Vitals: Vital Signs (12 hours) Temp Pulse Resp BP Pulse Ox 10/20/20 10:41 84 16 100 10/20/20 08:19 90 123/68 10/20/20 08:00 98.6 F 97 10/20/20 06:14 100 03/04/21 06:13 80 23 H 100 10/20/20 04:00 98.0 F 10/20/20 02:19 84 18 100 Weight Admit Weight 108 lb 14.4 oz Weight 112 lb 3.445 oz Most Recent Monitor Data Heart Rate from ECG 85 NIBP 137/75 NIBP BP-Mean 95 Respiration from ECG 17 SpO2 100 General Appearance: NAD, awake alert General - other findings: very thin a frail appearance Heart: RRR, no murmur, no gallops, no rubs, normal peripheral pulses Respiratory: rales ( and some wheezing at the bases) Gastrointestinal: soft, non-tender, non-distended, normal bowel sounds, no palpable masses, no hepatomegaly Extremities: no cyanosis, no edema Hosp A/P (1) Lung mass Code(s): R91.8 - OTHER NONSPECIFIC ABNORMAL FINDING OF LUNG FIELD Status: Acute (2) Atrial mass Code(s): I51.89 - OTHER ILL-DEFINED HEART DISEASES Status: Acute (3) COPD exacerbation Code(s): J44.1 - CHRONIC OBSTRUCTIVE PULMONARY DISEASE W (ACUTE) EXACERBATION Status: Acute (4) Esophageal dysphagia Code(s): R13.10 - DYSPHAGIA, UNSPECIFIED Status: Acute (5) Hypertension Code(s): I10 - ESSENTIAL (PRIMARY) HYPERTENSION Status: Acute - Plan * Lung Mass- The patient has decided on Hospice acre * HTN- blood pressure is stable * COPD- continue IV Solumedrol, and Duonebs, and Dulera and empiric antibiotics * Home when supplies are delivered
[2020-10-20] MEDS: Acetaminophen 325 MG TAB PO PRN (15:29)
--- NOTE | 2020-10-20 16:42 | PDOC.DS.DS ---
Provider Date of Admission: 10/10/20 20:21 Date of Discharge: 10/20/20 Admitting Provider: Yuliana Cochran MD Consultations: Oncology, Pulmonary Primary Care Physician: NO PCP PROVIDER Course Resuscitation Status: 10/10/20 22:49 Resuscitation Status Routine Resuscitation Status: DNAR: NO Resuscitation Discussed with: patient Lab Results: 10/16/20 04:18 10/16/20 04:18 Vitals: Vital Signs (12 hours) Temp Pulse Resp BP Pulse Ox 10/20/20 15:22 100 10/20/20 15:21 86 16 100 10/20/20 12:00 99.3 F 10/20/20 10:41 84 16 100 10/20/20 08:19 90 123/68 10/20/20 08:00 98.6 F 97 10/20/20 06:14 100 10/20/20 06:13 80 23 H 100 Weight Admit Weight 108 lb 14.4 oz Weight 112 lb 3.445 oz Most Recent Monitor Data Heart Rate from ECG 101 NIBP 145/78 NIBP BP-Mean 100 Respiration from ECG 24 SpO2 100 Physical Exam: The patient was seen and examined on the day of discharge. Problem (1) Lung mass Code(s): R91.8 - OTHER NONSPECIFIC ABNORMAL FINDING OF LUNG FIELD Status: Acute (2) Atrial mass Code(s): I51.89 - OTHER ILL-DEFINED HEART DISEASES Status: Acute (3) COPD exacerbation Code(s): J44.1 - CHRONIC OBSTRUCTIVE PULMONARY DISEASE W (ACUTE) EXACERBATION Status: Acute (4) Esophageal dysphagia Code(s): R13.10 - DYSPHAGIA, UNSPECIFIED Status: Acute (5) Hypertension Code(s): I10 - ESSENTIAL (PRIMARY) HYPERTENSION Status: Acute Plan Prescriptions: Mometasone/Formoterol 200/5 [Dulera 200 Mcg/5 Mcg Inhaler] 2 puff INH BID-RT #1 inh Cefdinir [Omnicef] 300 mg PO BID #14 cap predniSONE 20 mg PO QAM- #7 tab NIFEdipine [Procardia XL] 30 mg PO DAILY #30 tab Home Medications: Medication Instructions Recorded Confirmed Type Cefdinir [Omnicef] 300 mg PO BID #14 cap 10/20/20 Rx Mometasone/Formoterol 200/5 2 puff INH BID-RT #1 inh 10/20/20 Rx [Dulera 200 Mcg/5 Mcg Inhaler] NIFEdipine [Procardia XL] 30 mg PO DAILY #30 tab 10/20/20 Rx predniSONE 20 mg PO QAM-WM #7 tab 10/20/20 Rx Allergies: Penicillins Allergy (Verified 10/11/20 02:22) Rash MOUTH SWELLS Referrals: PROVIDER,NO PCP [Primary Care Provider] - Disposition: HOSPICE-HOME Quality CORE MEASURES:: N/A
[2020-10-20 17:28] VITALS: TEMP 98.7
[2020-10-21] MEDS ORDERED: predniSONE 20 MG TAB PO SCH (08:00)
== END 2020-10-20 18:30 | disposition hospice, home (50) | DRG 189 ==
LOC: ERS 16:54 → ERHOLD 20:21 → 2NO 10-11 16:31 → CCU 10-17 13:46
PROVIDERS: ADMIT Internal Medicine; ATTEND Internal Medicine
PROC: 5A09457 Assistance with Respiratory Ventilation, 24-96 Consecutive Hours, Continuous Positive Airway Pressure (ICD-10-PCS; principal; 2020-10-10)
DX: J96.21 Acute and chronic respiratory failure with hypoxia (principal); I21.A1 Myocardial infarction type 2; J44.1 Chronic obstructive pulmonary disease with (acute) exacerbation; N17.9 Acute kidney failure, unspecified; N39.0 Urinary tract infection, site not specified; Z68.1 Body mass index [BMI] 19.9 or less, adult; M62.82 Rhabdomyolysis; J98.11 Atelectasis; Z66 Do not resuscitate; Z51.5 Encounter for palliative care; Z20.822 Contact with and (suspected) exposure to COVID-19; F41.9 Anxiety disorder, unspecified; R91.8 Other nonspecific abnormal finding of lung field; I10 Essential (primary) hypertension; I73.9 Peripheral vascular disease, unspecified; I71.6 Thoracoabdominal aortic aneurysm, without rupture; M19.90 Unspecified osteoarthritis, unspecified site; R13.10 Dysphagia, unspecified; B95.2 Enterococcus as the cause of diseases classified elsewhere; R63.6 Underweight; I51.89 Other ill-defined heart diseases; E86.0 Dehydration; R73.9 Hyperglycemia, unspecified; Z87.891 Personal history of nicotine dependence; Z88.0 Allergy status to penicillin; I69.341 Monoplegia of lower limb following cerebral infarction affecting right dominant side; I69.321 Dysphasia following cerebral infarction
CPT/HCPCS: 0240U; 36415; 71045; 71275; 80048; 80053; 82553; 83735; 83880; 84484; 85025; 85379; 85610; 93005; 93306; 94640; 94660; 96365; 96367; 96375; J0360; J0692; J0696; J1650; J1940; J2060; J2270; J2920; J3475; J3490; J7512; J7620; Q9967